=== PATIENT | male | born 1950 | race Caucasian/White ===

== ENCOUNTER 2019-11-20 15:00 | Inpatient (IN) ==
[2019-11-20 15:56] LABS: INR 1.1; Mean Corpuscular HGB Conc 30.1 g/dL (31.6-35.5); Prothrombin Time 12.9 Seconds (9.4-12.1); Red Blood Count 4.35 M/mcL (4.19-5.50); Red Cell Distribution Width 14.8 % (11.5-14.5)
[2019-11-20 15:58] LABS: Hematocrit 41.2 % (37.5-50.1); Hemoglobin 12.4 g/dL (12.9-16.9); Mean Corpuscular Hemoglobin 28.5 pg (28.0-33.3); Mean Corpuscular Volume 94.7 fL (83.0-100.0); Mean Platelet Volume 10.5 fL (9.4-12.4); Platelet Count 321 K/mcL (140-400)
[2019-11-20 16:10] LABS: BUN/Creatinine Ratio 21 (6-26); Blood Urea Nitrogen 21 mg/dL (8-23); Calcium 10.6 mg/dL (8.6-10.3); Carbon Dioxide 29 mEq/L (23-29); Chloride 102 mEq/L (98-107); Glucose 203 mg/dL (70-105); Osmolality,Calculated 295 (280-300); Potassium 4.8 mEq/L (3.5-5.1); Sodium 138 mEq/L (136-145); Troponin I < 0.03 ng/mL (< 0.04); eGFR For African Americans > 60 (> 60); eGFR For Non-African Americans > 60 (> 60)
[2019-11-20] MEDS ORDERED: Morphine Sulfate 2 MG/ML SYRINGE IVP ONE (16:21)
[2019-11-20 16:22] LABS: White Blood Count 155.7 K/mcL (4.3-11.1)
[2019-11-20 16:40] LABS: Hematocrit 38.3 % (37.5-50.1); Hemoglobin 11.8 g/dL (12.9-16.9); Mean Corpuscular HGB Conc 30.8 g/dL (31.6-35.5); Mean Corpuscular Hemoglobin 29.1 pg (28.0-33.3); Mean Corpuscular Volume 94.6 fL (83.0-100.0); Mean Platelet Volume 9.8 fL (9.4-12.4); Platelet Count 306 K/mcL (140-400); Red Blood Count 4.05 M/mcL (4.19-5.50); Red Cell Distribution Width 14.6 % (11.5-14.5)
[2019-11-20 16:41] LABS: Lymphocytes # 130.8 K/mcL (0.6-4.6); Monocytes # 3.1 K/mcL (0.0-1.3); Neutrophils # 21.8 K/mcL (1.6-8.9)
[2019-11-20 16:42] LABS: Platelet Estimate Normal (Normal); Reactive Lymphocytes Present (Not Present); Smudge Cells Present (Not Present)
[2019-11-20 16:46] LABS: White Blood Count 157.2 K/mcL (4.3-11.1)
[2019-11-20 17:11] LABS: Lymphocytes # 132.1 K/mcL (0.6-4.6); Monocytes # 4.7 K/mcL (0.0-1.3); Neutrophils # 18.9 K/mcL (1.6-8.9); Platelet Estimate Normal (Normal)
[2019-11-20 17:24] LABS: Adenovirus Not Detected (Not Detect); Coronavirus 229E Not Detected (Not Detect); Coronavirus HKU1 Not Detected (Not Detect); Coronavirus NL63 Not Detected (Not Detect); Coronavirus OC43 Not Detected (Not Detect)
[2019-11-20 17:25] LABS: Bordetella Pertussis Not Detected (Not Detect); Chlamydophila pneumoniae Not Detected (Not Detect); Human Metapneumovirus Not Detected (Not Detect); Human Rhinovirus/Enterovirus Not Detected (Not Detect); Influenza A Subtype 2009 H1 Not Detected (Not Detect); Influenza B Not Detected (Not Detect); Mycoplasma pneumoniae Not Detected (Not Detect); Parainfluenza Virus 1 Not Detected (Not Detect); Parainfluenza Virus 2 Not Detected (Not Detect); Parainfluenza Virus 3 Not Detected (Not Detect); Parainfluenza Virus 4 Not Detected (Not Detect); Respiratory Syncytial Virus Not Detected (Not Detect); SARS-CoV-2 Not Detected (Not Detect)
[2019-11-20 17:28] LABS: Reactive Lymphocytes Present (Not Present); Smudge Cells Present (Not Present)
[2019-11-20] MEDS ORDERED: Dextrose Gel 15 GM/37.5 ML TUBE PO PRN ×2 (18:12)
[2019-11-20] MEDS ORDERED: *HR* Dextrose 50 % in Water (Vial) 50 ML VIAL IVP PRN (18:12)
[2019-11-20] MEDS ORDERED: Ondansetron ODT 4 MG TAB.RAPDIS SL PRN (18:12)
[2019-11-20] MEDS ORDERED: D5% in Water 1,000 ML IVC PRN (18:12)
[2019-11-20] MEDS ORDERED: Naloxone 0.4 MG/ML INJ IVP PRN (18:12)
[2019-11-20] MEDS ORDERED: 0.9 % Sodium Chloride 1,000 ML IVC SCH (18:15)
[2019-11-20] MEDS ORDERED: Acetaminophen 325 MG TABLET PO PRN (18:20)
[2019-11-20 19:04] LABS: Phosphorous 2.8 mg/dL (2.7-4.5); Uric Acid 7.9 mg/dL (2.3-7.6)
[2019-11-20 20:53] LABS: Estimated Average Glucose 143 mg/dl
[2019-11-20] MEDS ORDERED: Melatonin 3 MG TABLET PO SCH (21:00)
[2019-11-20] MEDS ORDERED: Insulin DETEMIR 100 UNIT/ML X5UNITS SQ SCH (21:00)
[2019-11-20] MEDS: BuPROPion SR (12 HR) 150 MG TABLET PO SCH (21:14)
[2019-11-20 23:19] LABS: Bilirubin,Urine Negative (Negative); Blood,Urine Negative (Negative); Clarity,Urine Clear (Clear); Color,Urine Yellow (Yellow); Glucose,Urine (UA) Normal (Normal); Ketones,Urine 20 mg/dL (Negative); Leukocyte Esterase,Urine Negative (Negative); Nitrite,Urine Negative (Negative); Protein,Urine Trace mg/dL (Neg-Trace); Specific Gravity,Urine 1.029 (1.010-1.025); Urobilinogen,Urine Normal (Normal)
[2019-11-21] MEDS: Insulin LISPRO 300 UNITS/3 ML VIAL SQ SCH ×4 (01:07→17:31)
[2019-11-21 04:33] LABS: Basophils % 0.1 %; Immature Granulocytes % 0.4 % (0-4); Mean Platelet Volume 10.1 fL (9.4-12.4); Red Cell Distribution Width 14.6 % (11.5-14.5)
[2019-11-21 04:35] LABS: Basophils # 0.2 K/mcL (0.0-0.2); Hemoglobin 11.6 g/dL (12.9-16.9); Lymphocytes % 90.6 %; Mean Corpuscular HGB Conc 30.5 g/dL (31.6-35.5); Mean Corpuscular Volume 91.8 fL (83.0-100.0); Monocytes % 2.5 %; Platelet Count 324 K/mcL (140-400); Red Blood Count 4.14 M/mcL (4.19-5.50); Segmented Neutrophils % 6.4 %
[2019-11-21 04:39] LABS: Lymphocytes # 164.3 K/mcL (0.6-4.6); Monocytes # 4.5 K/mcL (0.0-1.3); Neutrophils # 11.6 K/mcL (1.6-8.9)
[2019-11-21 04:41] LABS: INR 1.2; Prothrombin Time 13.4 Seconds (9.4-12.1); White Blood Count 181.3 K/mcL (4.3-11.1)
[2019-11-21 04:44] LABS: Activated Partial Thrombo Time 33.4 Seconds (26.0-36.0)
[2019-11-21 04:53] LABS: Alanine Aminotransferase 12 Units/L (7-52); Albumin/Globulin Ratio 1.7 (1.1-2.2); Alkaline Phosphatase 95 Units/L (34-104); Aspartate Amino Transferase 20 Units/L (13-39); BUN/Creatinine Ratio 20 (6-26); Bilirubin,Total 0.5 mg/dL (0.3-1.0); Blood Urea Nitrogen 18 mg/dL (8-23); Calcium 9.8 mg/dL (8.6-10.3); Carbon Dioxide 28 mEq/L (23-29); Chloride 104 mEq/L (98-107); Globulin 2.3 g/dL (2.4-3.5); Glucose 161 mg/dL (70-105); Lactate Dehydrogenase 235 Units/L (140-271); Magnesium 1.1 mg/dL (1.6-2.6); Osmolality,Calculated 291 (280-300); Phosphorous 2.5 mg/dL (2.7-4.5); Potassium 4.8 mEq/L (3.5-5.1); Sodium 138 mEq/L (136-145); Total Protein 6.3 g/dL (6.4-8.9); Uric Acid 7.2 mg/dL (2.3-7.6); eGFR For African Americans > 60 (> 60); eGFR For Non-African Americans > 60 (> 60)
[2019-11-21 05:10] LABS: Reactive Lymphocytes Present (Not Present)
[2019-11-21 05:11] LABS: Platelet Estimate Normal (Normal); Smudge Cells Present (Not Present)
[2019-11-21] MEDS ORDERED: atenoloL 50 MG TABLET PO SCH (05:30)
[2019-11-21] MEDS: BuPROPion SR (12 HR) 150 MG TABLET PO SCH ×2 (07:46→21:44)
[2019-11-21] MEDS ORDERED: Aspirin Enteric Coated 81 MG Tablet PO SCH (09:00)
[2019-11-21] MEDS ORDERED: Insulin DETEMIR 100 UNIT/ML X5UNITS SQ SCH (09:00)
[2019-11-21] MEDS ORDERED: lisinopriL 20 MG TABLET PO SCH (09:00)
[2019-11-21] MEDS ORDERED: Total Joint Mixture (50 ml) INTRAART ONE (14:00)
[2019-11-21] MEDS ORDERED: *HR* FentaNYL (PF) 100 MCG/2 ML VIAL ONE ×2 (17:31→18:37)
[2019-11-21] MEDS ORDERED: *HR* Midazolam HCl 2 MG/2 ML VIAL ONE (17:31)
[2019-11-21] MEDS ORDERED: *HR* Propofol 200 MG/20 ML VIAL IVP ONE ×2 (17:32→18:37)
[2019-11-21] MEDS ORDERED: Lidocaine -MPF 2% 2 ML VIAL ONE ×2 (17:33→18:37)
[2019-11-21] MEDS ORDERED: *HR* Rocuronium Bromide 50 MG/5 ML VIAL ONE (17:33)
[2019-11-21] MEDS ORDERED: Lidocaine HCL 4 ML Topical Solution (Laryng-O-Jet Kit Sterile Pak) TP ONE (17:33)
[2019-11-21] MEDS ORDERED: Ondansetron 4 MG/2 ML VIAL ONE ×2 (17:33→18:37)
[2019-11-21] MEDS ORDERED: Ondansetron 4 MG/2 ML VIAL IVP PRN ×2 (18:22→20:32)
[2019-11-21] MEDS ORDERED: *HR* Labetalol 20 MG/4 ML SYRINGE IVP PRN (18:22)
[2019-11-21] MEDS ORDERED: *HR* Promethazine 25 MG/ML VIAL IVP PRN ×2 (18:22→20:32)
[2019-11-21] MEDS ORDERED: *HR* HYDROmorphone (PF) 1 MG/ML SYRINGE IVP PRN (18:22)
[2019-11-21] MEDS ORDERED: Vancomycin 1,000 MG VIAL ONE (18:31)
[2019-11-21] MEDS ORDERED: Ethanol\\Acetic Acid\\Na Ace\\Ben 1,000 ML IRRIG.SOLN IR ONE (18:31)
[2019-11-21] MEDS ORDERED: Dexamethasone 4 MG/ML VIAL ONE (18:37)
[2019-11-21] MEDS ORDERED: Acetaminophen IV 1,000 MG/100 ML INFUS..BTL ONE (18:54)
[2019-11-21] MEDS ORDERED: ceFAZolin 2,000 MG in Water for inj. (sterile) 20 ML IVP ONE (18:57)
[2019-11-21] MEDS ORDERED: EPHEDrine 50 MG/ML VIAL ONE (19:17)
[2019-11-21] MEDS ORDERED: *HR* HYDROMORPHONE 2 MG/ML VIAL ONE (19:23)
[2019-11-21] MEDS ORDERED: *HR* Dextrose 50 % in Water (Vial) 50 ML VIAL IVP PRN (20:32)
[2019-11-21] MEDS ORDERED: Naloxone 0.4 MG/ML INJ IVP PRN (20:32)
[2019-11-21] MEDS ORDERED: D5% in Water 1,000 ML IVC PRN (20:32)
[2019-11-21] MEDS ORDERED: *HR* OxyCODONE Immed Rel 5 MG TABLET PO PRN (20:32)
[2019-11-21] MEDS ORDERED: Acetaminophen 325 MG TABLET PO PRN (20:32)
[2019-11-21] MEDS ORDERED: Dextrose Gel 15 GM/37.5 ML TUBE PO PRN ×2 (20:32)
[2019-11-21] MEDS ORDERED: MOM Conc 10 ML UD.LIQ PO PRN (20:32)
[2019-11-21] MEDS ORDERED: Sennosides 8.6 MG TABLET PO PRN (21:00)
[2019-11-21] MEDS: Insulin DETEMIR 100 UNIT/ML X5UNITS SQ SCH (21:34)
[2019-11-21] MEDS: Ringers Solution, Lactated 1,000 ML IVC SCH (21:43)
[2019-11-21] MEDS: Melatonin 3 MG TABLET PO SCH (21:44)
[2019-11-21 22:17] LABS: Hematocrit 34.3 % (37.5-50.1); Hemoglobin 10.5 g/dL (12.9-16.9)
[2019-11-22] MEDS: CeFAZolin 2 GM/120 ML BAG IVPB SCH ×2 (00:04→09:38)
[2019-11-22] MEDS: Insulin LISPRO 300 UNITS/3 ML VIAL SQ SCH ×4 (00:04→17:11)
[2019-11-22] MEDS: Ringers Solution, Lactated 1,000 ML IVC SCH ×2 (05:23→09:10)
[2019-11-22 08:39] LABS: Red Cell Distribution Width 15.2 % (11.5-14.5)
[2019-11-22 08:40] LABS: Hematocrit 30.8 % (37.5-50.1); Hemoglobin 8.9 g/dL (12.9-16.9); Mean Corpuscular HGB Conc 28.9 g/dL (31.6-35.5); Mean Corpuscular Volume 96.9 fL (83.0-100.0); Mean Platelet Volume 10.7 fL (9.4-12.4); Platelet Count 288 K/mcL (140-400); Red Blood Count 3.18 M/mcL (4.19-5.50)
[2019-11-22 08:54] LABS: Calcium 9.7 mg/dL (8.6-10.3); Magnesium 1.8 mg/dL (1.6-2.6); Phosphorous 6.2 mg/dL (2.7-4.5); Potassium 5.6 mEq/L (3.5-5.1)
[2019-11-22 08:56] LABS: White Blood Count 202.3 K/mcL (4.3-11.1)
[2019-11-22] MEDS ORDERED: lisinopriL 20 MG TABLET PO SCH (09:00)
[2019-11-22] MEDS: BuPROPion SR (12 HR) 150 MG TABLET PO SCH ×2 (09:10→22:43)
[2019-11-22] MEDS: Multivit/Ca/Min/Fe/FA 1 TAB TABLET PO SCH (09:11)
[2019-11-22] MEDS: Ascorbic Acid 500 MG TABLET PO SCH ×2 (09:11→17:04)
[2019-11-22] MEDS: atenoloL 50 MG TABLET PO SCH (09:15)
[2019-11-22] MEDS: Insulin DETEMIR 100 UNIT/ML X5UNITS SQ SCH ×2 (09:24→22:46)
[2019-11-22 10:05] LABS: Monocytes # 4.1 K/mcL (0.0-1.3); Neutrophils # 20.2 K/mcL (1.6-8.9); Platelet Estimate Normal (Normal)
[2019-11-22 10:06] LABS: Anisocytosis 1+ (Not Present); Smudge Cells Present (Not Present)
[2019-11-22] MEDS ORDERED: Insulin Human Regular 5 UNIT in 0.9 % Sodium Chloride 10 ML IV ONE (11:35)
[2019-11-22] MEDS ORDERED: Calcium Gluconate 1gm/50mL 1 GM/50 ML BAG IVPB ONE (11:35)
[2019-11-22] MEDS ORDERED: *HR* Dextrose 50 % in Water (Vial) 50 ML VIAL IVP ONE (11:35)
[2019-11-22 12:17] LABS: Hematocrit 27.6 % (37.5-50.1); Hemoglobin 8.3 g/dL (12.9-16.9)
[2019-11-22] MEDS: 0.9 % Sodium Chloride 1,000 ML IVC SCH ×2 (12:27→22:44)
[2019-11-22 13:53] LABS: Calcium 9.5 mg/dL (8.6-10.3); Potassium 4.7 mEq/L (3.5-5.1)
[2019-11-22] MEDS ORDERED: 0.9 % Sodium Chloride 250 ML ONE (16:32)
[2019-11-22] MEDS: Aspirin Enteric Coated 81 MG Tablet PO SCH (17:21)
[2019-11-22 21:25] LABS: Hematocrit 28.1 % (37.5-50.1); Hemoglobin 8.6 g/dL (12.9-16.9); Immature Granulocytes % 0.4 % (0-4); Lymphocytes % 88.7 %; Mean Corpuscular HGB Conc 30.6 g/dL (31.6-35.5); Mean Corpuscular Hemoglobin 28.8 pg (28.0-33.3); Mean Platelet Volume 10.6 fL (9.4-12.4); Monocytes # 4.1 K/mcL (0.0-1.3); Monocytes % 2.9 %; Neutrophils # 11.4 K/mcL (1.6-8.9); Platelet Count 218 K/mcL (140-400); Red Blood Count 2.99 M/mcL (4.19-5.50); Red Cell Distribution Width 14.9 % (11.5-14.5)
[2019-11-22 22:03] LABS: Platelet Estimate Normal (Normal)
[2019-11-22 22:04] LABS: Reactive Lymphocytes Present (Not Present); Smudge Cells Present (Not Present)
[2019-11-22] MEDS: Melatonin 3 MG TABLET PO SCH (22:43)
[2019-11-23 07:05] LABS: Mean Platelet Volume 10.5 fL (9.4-12.4)
[2019-11-23 07:06] LABS: Hematocrit 28.5 % (37.5-50.1); Hemoglobin 8.7 g/dL (12.9-16.9); Immature Granulocytes % 0.4 % (0-4); Lymphocytes # 127.3 K/mcL (0.6-4.6); Mean Corpuscular HGB Conc 30.5 g/dL (31.6-35.5); Mean Corpuscular Hemoglobin 28.6 pg (28.0-33.3); Mean Corpuscular Volume 93.8 fL (83.0-100.0); Monocytes # 3.9 K/mcL (0.0-1.3); Monocytes % 2.7 %; Neutrophils # 12.9 K/mcL (1.6-8.9); Platelet Count 225 K/mcL (140-400); Red Blood Count 3.04 M/mcL (4.19-5.50); Red Cell Distribution Width 15.4 % (11.5-14.5); Segmented Neutrophils % 8.9 %
[2019-11-23 07:11] LABS: White Blood Count 144.7 K/mcL (4.3-11.1)
[2019-11-23 07:25] LABS: BUN/Creatinine Ratio 26 (6-26); Blood Urea Nitrogen 36 mg/dL (8-23); Calcium 9.7 mg/dL (8.6-10.3); Carbon Dioxide 26 mEq/L (23-29); Chloride 106 mEq/L (98-107); Glucose 59 mg/dL (70-105); Magnesium 1.8 mg/dL (1.6-2.6); Osmolality,Calculated 294 (280-300); Phosphorous 3.4 mg/dL (2.7-4.5); Potassium 4.1 mEq/L (3.5-5.1); Sodium 139 mEq/L (136-145); eGFR For African Americans > 60 (> 60); eGFR For Non-African Americans 50 (> 60)
[2019-11-23] MEDS: Insulin LISPRO 300 UNITS/3 ML VIAL SQ SCH ×3 (08:00→16:37)
[2019-11-23 08:04] LABS: Anisocytosis 1+ (Not Present); Platelet Estimate Normal (Normal)
[2019-11-23 08:05] LABS: Smudge Cells Present (Not Present)
[2019-11-23] MEDS: Aspirin Enteric Coated 81 MG Tablet PO SCH (10:28)
[2019-11-23] MEDS: Multivit/Ca/Min/Fe/FA 1 TAB TABLET PO SCH (10:29)
[2019-11-23] MEDS: 0.9 % Sodium Chloride 1,000 ML IVC SCH (10:29)
[2019-11-23] MEDS: Ascorbic Acid 500 MG TABLET PO SCH ×2 (10:29→17:24)
[2019-11-23] MEDS: BuPROPion SR (12 HR) 150 MG TABLET PO SCH ×2 (10:29→21:47)
[2019-11-23] MEDS: Insulin DETEMIR 100 UNIT/ML X5UNITS SQ SCH ×2 (10:30→21:48)
[2019-11-23] MEDS: Melatonin 3 MG TABLET PO SCH (21:47)
[2019-11-24 03:40] LABS: Immature Granulocytes % 0.3 % (0-4); Segmented Neutrophils % 8.3 %
[2019-11-24 03:42] LABS: Hemoglobin 7.3 g/dL (12.9-16.9); Lymphocytes % 88.7 %; Mean Corpuscular HGB Conc 30.4 g/dL (31.6-35.5); Mean Corpuscular Hemoglobin 28.6 pg (28.0-33.3); Mean Corpuscular Volume 94.1 fL (83.0-100.0); Mean Platelet Volume 10.5 fL (9.4-12.4); Monocytes # 2.8 K/mcL (0.0-1.3); Monocytes % 2.7 %; Platelet Count 205 K/mcL (140-400); Red Blood Count 2.55 M/mcL (4.19-5.50); Red Cell Distribution Width 15.2 % (11.5-14.5)
[2019-11-24 03:44] LABS: Lymphocytes # 93.2 K/mcL (0.6-4.6); Neutrophils # 8.7 K/mcL (1.6-8.9)
[2019-11-24 03:48] LABS: White Blood Count 105.1 K/mcL (4.3-11.1)
[2019-11-24 04:01] LABS: BUN/Creatinine Ratio 29 (6-26); Blood Urea Nitrogen 28 mg/dL (8-23); Calcium 8.6 mg/dL (8.6-10.3); Carbon Dioxide 25 mEq/L (23-29); Chloride 106 mEq/L (98-107); Glucose 231 mg/dL (70-105); Magnesium 1.6 mg/dL (1.6-2.6); Osmolality,Calculated 297 (280-300); Potassium 4.1 mEq/L (3.5-5.1); Sodium 137 mEq/L (136-145); eGFR For African Americans > 60 (> 60); eGFR For Non-African Americans > 60 (> 60)
[2019-11-24 04:50] LABS: Platelet Estimate Normal (Normal)
[2019-11-24 04:51] LABS: Smudge Cells Present (Not Present)
[2019-11-24] MEDS: Multivit/Ca/Min/Fe/FA 1 TAB TABLET PO SCH (09:42)
[2019-11-24] MEDS: BuPROPion SR (12 HR) 150 MG TABLET PO SCH ×2 (09:42→20:35)
[2019-11-24] MEDS: Ascorbic Acid 500 MG TABLET PO SCH ×2 (09:42→15:25)
[2019-11-24] MEDS: Aspirin Enteric Coated 81 MG Tablet PO SCH (09:43)
[2019-11-24] MEDS: Insulin LISPRO 300 UNITS/3 ML VIAL SQ SCH ×3 (09:45→20:44)
[2019-11-24] MEDS: Insulin DETEMIR 100 UNIT/ML X5UNITS SQ SCH ×2 (09:50→20:35)
[2019-11-24] MEDS: HYDROcodone BIT/Homatropine 5 MG TABLET PO PRN ×2 (11:26→20:35)
[2019-11-24] MEDS ORDERED: 0.9 % Sodium Chloride 250 ML ONE (14:00)
[2019-11-24 17:34] LABS: Eosinophils % 0.1 %; Immature Granulocytes % 0.3 % (0-4); Mean Platelet Volume 10.3 fL (9.4-12.4); Monocytes % 2.2 %; Red Cell Distribution Width 15.6 % (11.5-14.5)
[2019-11-24 17:36] LABS: Basophils # 0.1 K/mcL (0.0-0.2); Basophils % 0.1 %; Eosinophils # 0.1 K/mcL (0.0-0.6); Hematocrit 28.9 % (37.5-50.1); Hemoglobin 8.7 g/dL (12.9-16.9); Lymphocytes % 90.5 %; Mean Corpuscular HGB Conc 30.1 g/dL (31.6-35.5); Mean Corpuscular Hemoglobin 28.4 pg (28.0-33.3); Mean Corpuscular Volume 94.4 fL (83.0-100.0); Platelet Count 220 K/mcL (140-400); Red Blood Count 3.06 M/mcL (4.19-5.50); Segmented Neutrophils % 6.8 %
[2019-11-24 17:39] LABS: Lymphocytes # 103.8 K/mcL (0.6-4.6); Monocytes # 2.5 K/mcL (0.0-1.3); Neutrophils # 7.8 K/mcL (1.6-8.9); White Blood Count 114.7 K/mcL (4.3-11.1)
[2019-11-24 18:37] LABS: Platelet Estimate Normal (Normal); Smudge Cells Present (Not Present)
[2019-11-24] MEDS: Melatonin 3 MG TABLET PO SCH (20:35)
[2019-11-24 22:34] LABS: Hematocrit 26.9 % (37.5-50.1); Hemoglobin 8.2 g/dL (12.9-16.9)
[2019-11-25] MEDS: Insulin LISPRO 300 UNITS/3 ML VIAL SQ SCH ×2 (09:25→13:26)
[2019-11-25] MEDS: BuPROPion SR (12 HR) 150 MG TABLET PO SCH (09:26)
[2019-11-25] MEDS: atenoloL 50 MG TABLET PO SCH (09:26)
[2019-11-25] MEDS: Ascorbic Acid 500 MG TABLET PO SCH (09:26)
[2019-11-25] MEDS: Aspirin Enteric Coated 81 MG Tablet PO SCH (09:26)
[2019-11-25] MEDS: Multivit/Ca/Min/Fe/FA 1 TAB TABLET PO SCH (09:26)
[2019-11-25] MEDS: Insulin DETEMIR 100 UNIT/ML X5UNITS SQ SCH (09:27)
[2019-11-25 12:13] LABS: Hematocrit 28.3 % (37.5-50.1); Hemoglobin 8.6 g/dL (12.9-16.9); Mean Corpuscular HGB Conc 30.4 g/dL (31.6-35.5); Mean Corpuscular Hemoglobin 28.7 pg (28.0-33.3); Mean Corpuscular Volume 94.3 fL (83.0-100.0); Mean Platelet Volume 10.2 fL (9.4-12.4); Platelet Count 234 K/mcL (140-400); Red Cell Distribution Width 15.9 % (11.5-14.5)
[2019-11-25 12:19] LABS: White Blood Count 113.4 K/mcL (4.3-11.1)
[2019-11-25 12:31] LABS: BUN/Creatinine Ratio 18 (6-26); Blood Urea Nitrogen 16 mg/dL (8-23); Calcium 8.5 mg/dL (8.6-10.3); Carbon Dioxide 28 mEq/L (23-29); Chloride 103 mEq/L (98-107); Glucose 136 mg/dL (70-105); Magnesium 1.5 mg/dL (1.6-2.6); Osmolality,Calculated 287 (280-300); Phosphorous 2.6 mg/dL (2.7-4.5); Potassium 4.2 mEq/L (3.5-5.1); Sodium 137 mEq/L (136-145); eGFR For African Americans > 60 (> 60); eGFR For Non-African Americans > 60 (> 60)
[2019-11-25 12:44] LABS: Lymphocytes # 99.8 K/mcL (0.6-4.6); Neutrophils # 13.6 K/mcL (1.6-8.9); Platelet Estimate Slight Decrease (Normal); Smudge Cells Present (Not Present)
[2019-11-25 16:23] VITALS: BP 166/71
== END 2019-11-25 17:51 | DRG 469 ==
LOC: EMEROOARM 15:00 → 3NENU 15:00 → SUATTDRO 18:20 → 3NENU 22:13
PROVIDERS: ADMIT Internal Medicine; ATTEND Internal Medicine

== ENCOUNTER 2019-12-17 14:26 | Inpatient (IN) ==
[2019-12-17 15:21] LABS: Hematocrit 27.9 % (37.5-50.1); Hemoglobin 8.1 g/dL (12.9-16.9); Mean Corpuscular Hemoglobin 26.7 pg (28.0-33.3); Mean Corpuscular Volume 92.1 fL (83.0-100.0); Mean Platelet Volume 9.7 fL (9.4-12.4); Platelet Count 401 K/mcL (140-400); Red Blood Count 3.03 M/mcL (4.19-5.50); Red Cell Distribution Width 15.4 % (11.5-14.5)
[2019-12-17 15:26] LABS: INR 1.1; Prothrombin Time 12.5 Seconds (9.4-12.1)
[2019-12-17 15:29] LABS: Activated Partial Thrombo Time 30.9 Seconds (26.0-36.0)
[2019-12-17 15:43] LABS: White Blood Count 97.6 K/mcL (4.3-11.1)
[2019-12-17 15:50] LABS: BUN/Creatinine Ratio 41 (6-26); Blood Urea Nitrogen 40 mg/dL (8-23); Calcium 9.2 mg/dL (8.6-10.3); Carbon Dioxide 30 mEq/L (23-29); Chloride 97 mEq/L (98-107); Glucose 303 mg/dL (70-105); Osmolality,Calculated 295 (280-300); Potassium 4.9 mEq/L (3.5-5.1); Sodium 132 mEq/L (136-145); eGFR For African Americans > 60 (> 60); eGFR For Non-African Americans > 60 (> 60)
[2019-12-17 16:12] LABS: Lymphocytes # 84.9 K/mcL (0.6-4.6); Neutrophils # 8.8 K/mcL (1.6-8.9); Reactive Lymphocytes Present (Not Present)
[2019-12-17 16:13] LABS: Smudge Cells Present (Not Present)
[2019-12-17] MEDS ORDERED: Acetaminophen 325 MG TABLET PO PRN (18:15)
[2019-12-17] MEDS ORDERED: 0.9 % Sodium Chloride 1,000 ML IVC SCH (18:15)
[2019-12-17] MEDS ORDERED: Naloxone 0.4 MG/ML INJ IVP PRN (18:15)
[2019-12-17] MEDS ORDERED: D5% in Water 1,000 ML IVC PRN (18:26)
[2019-12-17] MEDS ORDERED: *HR* Dextrose 50 % in Water (Vial) 50 ML VIAL IVP PRN (18:26)
[2019-12-17] MEDS ORDERED: Dextrose Gel 15 GM/37.5 ML TUBE PO PRN ×2 (18:26)
[2019-12-17 20:29] LABS: Hematocrit 29.5 % (37.5-50.1); Hemoglobin 8.8 g/dL (12.9-16.9)
[2019-12-17] MEDS ORDERED: Insulin LISPRO 300 UNITS/3 ML VIAL SQ SCH (21:00)
[2019-12-18] MEDS ORDERED: Melatonin 3 MG TABLET PO SCH ×2 (00:45→21:00)
[2019-12-18] MEDS: Insulin LISPRO 300 UNITS/3 ML VIAL SQ SCH ×3 (08:57→17:08)
[2019-12-18 10:10] LABS: Hemoglobin 9.4 g/dL (12.9-16.9); Red Cell Distribution Width 15.1 % (11.5-14.5)
[2019-12-18 10:11] LABS: Hematocrit 31.8 % (37.5-50.1); Mean Corpuscular HGB Conc 29.6 g/dL (31.6-35.5); Mean Corpuscular Hemoglobin 27.9 pg (28.0-33.3); Mean Corpuscular Volume 94.4 fL (83.0-100.0); Mean Platelet Volume 9.8 fL (9.4-12.4); Platelet Count 459 K/mcL (140-400); Red Blood Count 3.37 M/mcL (4.19-5.50)
[2019-12-18 10:16] LABS: INR 1.2; Prothrombin Time 13.4 Seconds (9.4-12.1)
[2019-12-18 10:19] LABS: Activated Partial Thrombo Time 31.8 Seconds (26.0-36.0)
[2019-12-18 10:29] LABS: BUN/Creatinine Ratio 34 (6-26); Blood Urea Nitrogen 28 mg/dL (8-23); Calcium 9.8 mg/dL (8.6-10.3); Carbon Dioxide 27 mEq/L (23-29); Chloride 94 mEq/L (98-107); Glucose 287 mg/dL (70-105); Osmolality,Calculated 286 (280-300); Potassium 4.9 mEq/L (3.5-5.1); Sodium 130 mEq/L (136-145); eGFR For African Americans > 60 (> 60); eGFR For Non-African Americans > 60 (> 60)
[2019-12-18 10:33] LABS: White Blood Count 110.4 K/mcL (4.3-11.1)
[2019-12-18 11:38] LABS: Lymphocytes # 94.9 K/mcL (0.6-4.6); Monocytes # 2.2 K/mcL (0.0-1.3); Neutrophils # 13.3 K/mcL (1.6-8.9)
[2019-12-18 11:39] LABS: Platelet Estimate Normal (Normal); Reactive Lymphocytes Present (Not Present); Smudge Cells Present (Not Present)
[2019-12-18] MEDS: Ipratropium/Albuterol Neb 3 ML IH SCH ×2 (16:30→22:55)
[2019-12-18] MEDS: Insulin DETEMIR 100 UNIT/ML X5UNITS SQ SCH (21:51)
[2019-12-19] MEDS ORDERED: Ondansetron 4 MG/2 ML VIAL IVP PRN ×2 (02:00→17:09)
[2019-12-19 02:05] LABS: Hemoglobin 8.1 g/dL (12.9-16.9)
[2019-12-19 02:06] LABS: Hematocrit 27.6 % (37.5-50.1); Mean Corpuscular HGB Conc 29.3 g/dL (31.6-35.5); Mean Platelet Volume 9.4 fL (9.4-12.4); Platelet Count 432 K/mcL (140-400); Red Cell Distribution Width 15.3 % (11.5-14.5)
[2019-12-19 02:16] LABS: White Blood Count 99.6 K/mcL (4.3-11.1)
[2019-12-19 02:26] LABS: BUN/Creatinine Ratio 34 (6-26); Blood Urea Nitrogen 30 mg/dL (8-23); Calcium 9.8 mg/dL (8.6-10.3); Carbon Dioxide 27 mEq/L (23-29); Chloride 97 mEq/L (98-107); Glucose 256 mg/dL (70-105); Osmolality,Calculated 289 (280-300); Potassium 4.2 mEq/L (3.5-5.1); Sodium 132 mEq/L (136-145); eGFR For African Americans > 60 (> 60); eGFR For Non-African Americans > 60 (> 60)
[2019-12-19] MEDS: Ipratropium/Albuterol Neb 3 ML IH SCH (04:08)
[2019-12-19] MEDS ORDERED: atenoloL 50 MG TABLET PO SCH (09:00)
[2019-12-19] MEDS ORDERED: Lactulose Oral Soln 20 GM/30 ML UDC PO SCH (09:00)
[2019-12-19] MEDS ORDERED: Famotidine 20 MG TABLET PO SCH (09:00)
[2019-12-19] MEDS ORDERED: lisinopriL 20 MG TABLET PO SCH (09:00)
[2019-12-19] MEDS ORDERED: Insulin DETEMIR 100 UNIT/ML X5UNITS SQ SCH ×2 (10:15→21:00)
[2019-12-19] MEDS: Insulin LISPRO 300 UNITS/3 ML VIAL SQ SCH ×2 (10:19→13:19)
[2019-12-19] MEDS ORDERED: Ipratropium/Albuterol Neb 3 ML IH PRN ×2 (10:23→19:38)
[2019-12-19] MEDS: Insulin DETEMIR 100 UNIT/ML X5UNITS SQ SCH (10:28)
[2019-12-19 14:12] LABS: Hematocrit 30.8 % (37.5-50.1); Hemoglobin 9.1 g/dL (12.9-16.9)
[2019-12-19] MEDS ORDERED: CeFAZolin Syr 2,000MG/20 ML 2,000 MG/20 ML SYRINGE IVPB ONE (14:39)
[2019-12-19] MEDS ORDERED: *HR* Succinylcholine 200 MG/10 ML VIAL IVP ONE (15:55)
[2019-12-19] MEDS ORDERED: Lidocaine -MPF 2% 2 ML VIAL ONE (15:55)
[2019-12-19] MEDS ORDERED: *HR* FentaNYL (PF) 100 MCG/2 ML VIAL ONE (15:55)
[2019-12-19] MEDS ORDERED: *HR* Propofol 200 MG/20 ML VIAL IVP ONE (15:55)
[2019-12-19] MEDS ORDERED: Ondansetron 4 MG/2 ML VIAL ONE (15:55)
[2019-12-19 16:26] LABS: Adenovirus Not Detected (Not Detect); Bordetella Pertussis Not Detected (Not Detect); Chlamydophila pneumoniae Not Detected (Not Detect); Coronavirus 229E Not Detected (Not Detect); Coronavirus HKU1 Not Detected (Not Detect); Coronavirus NL63 Not Detected (Not Detect); Coronavirus OC43 Not Detected (Not Detect); Human Metapneumovirus Not Detected (Not Detect); Human Rhinovirus/Enterovirus Not Detected (Not Detect); Influenza A Subtype 2009 H1 Not Detected (Not Detect); Influenza B Not Detected (Not Detect); Mycoplasma pneumoniae Not Detected (Not Detect); Parainfluenza Virus 1 Not Detected (Not Detect); Parainfluenza Virus 2 Not Detected (Not Detect); Parainfluenza Virus 3 Not Detected (Not Detect); Parainfluenza Virus 4 Not Detected (Not Detect); Respiratory Syncytial Virus Not Detected (Not Detect); SARS-CoV-2 Not Detected (Not Detect)
[2019-12-19] MEDS ORDERED: Vancomycin 1,000 MG VIAL ONE (16:40)
[2019-12-19] MEDS ORDERED: Ethanol\\Acetic Acid\\Na Ace\\Ben 1,000 ML IRRIG.SOLN IR ONE (16:41)
[2019-12-19] MEDS ORDERED: *HR* FentaNYL (PF) 100 MCG/2 ML VIAL IVP PRN (17:09)
[2019-12-19] MEDS ORDERED: Dexamethasone 4 MG/ML VIAL ONE (17:27)
[2019-12-19] MEDS ORDERED: *HR* Dextrose 50 % in Water (Vial) 50 ML VIAL IVP PRN (19:38)
[2019-12-19] MEDS ORDERED: Dextrose Gel 15 GM/37.5 ML TUBE PO PRN ×2 (19:38)
[2019-12-19] MEDS ORDERED: Ringers Solution, Lactated 1,000 ML IVC SCH (19:38)
[2019-12-19] MEDS ORDERED: *HR* Promethazine 25 MG/ML VIAL IVP PRN (19:38)
[2019-12-19] MEDS ORDERED: MOM Conc 10 ML UD.LIQ PO PRN (19:38)
[2019-12-19] MEDS ORDERED: Sennosides 8.6 MG TABLET PO PRN (19:38)
[2019-12-19] MEDS ORDERED: Naloxone 0.4 MG/ML INJ IVP PRN ×2 (19:38)
[2019-12-19] MEDS ORDERED: D5% in Water 1,000 ML IVC PRN (19:38)
[2019-12-19] MEDS: Melatonin 3 MG TABLET PO SCH (20:58)
[2019-12-19] MEDS: Ascorbic Acid 500 MG TABLET PO SCH (20:59)
[2019-12-20 03:13] LABS: Immature Granulocytes % 0.2 % (0-4); Mean Platelet Volume 9.6 fL (9.4-12.4); Monocytes % 0.6 %; Red Cell Distribution Width 15.5 % (11.5-14.5)
[2019-12-20 03:15] LABS: Hematocrit 28.5 % (37.5-50.1); Hemoglobin 8.1 g/dL (12.9-16.9); Lymphocytes % 91.5 %; Mean Corpuscular HGB Conc 28.4 g/dL (31.6-35.5); Mean Corpuscular Hemoglobin 26.9 pg (28.0-33.3); Mean Corpuscular Volume 94.7 fL (83.0-100.0); Platelet Count 455 K/mcL (140-400); Red Blood Count 3.01 M/mcL (4.19-5.50); Segmented Neutrophils % 7.7 %
[2019-12-20 03:16] LABS: Monocytes # 0.6 K/mcL (0.0-1.3); Neutrophils # 8.2 K/mcL (1.6-8.9)
[2019-12-20 03:26] LABS: BUN/Creatinine Ratio 37 (6-26); Blood Urea Nitrogen 29 mg/dL (8-23); Calcium 9.9 mg/dL (8.6-10.3); Carbon Dioxide 26 mEq/L (23-29); Chloride 99 mEq/L (98-107); Glucose 257 mg/dL (70-105); Osmolality,Calculated 293 (280-300); Potassium 4.9 mEq/L (3.5-5.1); Sodium 134 mEq/L (136-145); eGFR For African Americans > 60 (> 60); eGFR For Non-African Americans > 60 (> 60)
[2019-12-20 03:33] LABS: Hypochromasia Present (Not Present)
[2019-12-20 03:34] LABS: Reactive Lymphocytes Present (Not Present); Smudge Cells Present (Not Present)
[2019-12-20 03:35] LABS: Platelet Estimate Normal (Normal)
[2019-12-20] MEDS: Acetaminophen 325 MG TABLET PO PRN (10:19)
[2019-12-20] MEDS: Multivit/Ca/Min/Fe/FA 1 TAB TABLET PO SCH (10:19)
[2019-12-20] MEDS: Lactulose Oral Soln 20 GM/30 ML UDC PO SCH (10:19)
[2019-12-20] MEDS: Famotidine 20 MG TABLET PO SCH (10:19)
[2019-12-20] MEDS: Ascorbic Acid 500 MG TABLET PO SCH ×2 (10:20→16:53)
[2019-12-20] MEDS: lisinopriL 20 MG TABLET PO SCH (10:20)
[2019-12-20] MEDS: atenoloL 50 MG TABLET PO SCH (10:20)
[2019-12-20] MEDS: Insulin LISPRO 300 UNITS/3 ML VIAL SQ SCH ×3 (10:21→16:53)
[2019-12-20] MEDS: Melatonin 3 MG TABLET PO SCH (21:07)
[2019-12-20] MEDS: Insulin DETEMIR 100 UNIT/ML X5UNITS SQ SCH (21:08)
[2019-12-21 05:34] LABS: Red Cell Distribution Width 15.7 % (11.5-14.5)
[2019-12-21 05:35] LABS: BUN/Creatinine Ratio 42 (6-26); Blood Urea Nitrogen 31 mg/dL (8-23); Calcium 9.3 mg/dL (8.6-10.3); Carbon Dioxide 30 mEq/L (23-29); Chloride 101 mEq/L (98-107); Glucose 111 mg/dL (70-105); Hematocrit 28.1 % (37.5-50.1); Mean Corpuscular HGB Conc 28.5 g/dL (31.6-35.5); Mean Corpuscular Volume 94.9 fL (83.0-100.0); Mean Platelet Volume 9.6 fL (9.4-12.4); Osmolality,Calculated 291 (280-300); Platelet Count 534 K/mcL (140-400); Potassium 3.8 mEq/L (3.5-5.1); Red Blood Count 2.96 M/mcL (4.19-5.50); Sodium 137 mEq/L (136-145); eGFR For African Americans > 60 (> 60); eGFR For Non-African Americans > 60 (> 60)
[2019-12-21 05:51] LABS: White Blood Count 110.2 K/mcL (4.3-11.1)
[2019-12-21] MEDS: Insulin LISPRO 300 UNITS/3 ML VIAL SQ SCH ×3 (07:49→17:05)
[2019-12-21] MEDS: Insulin DETEMIR 100 UNIT/ML X5UNITS SQ SCH ×2 (07:49→21:39)
[2019-12-21] MEDS: Lactulose Oral Soln 20 GM/30 ML UDC PO SCH (08:00)
[2019-12-21] MEDS: Famotidine 20 MG TABLET PO SCH (08:07)
[2019-12-21] MEDS: atenoloL 50 MG TABLET PO SCH (08:07)
[2019-12-21] MEDS: Ascorbic Acid 500 MG TABLET PO SCH ×2 (08:07→17:04)
[2019-12-21] MEDS: Acetaminophen 325 MG TABLET PO PRN (08:07)
[2019-12-21] MEDS: lisinopriL 20 MG TABLET PO SCH (08:07)
[2019-12-21] MEDS: Multivit/Ca/Min/Fe/FA 1 TAB TABLET PO SCH (08:07)
[2019-12-21] MEDS: Melatonin 3 MG TABLET PO SCH (21:39)
[2019-12-22 06:33] LABS: Eosinophils % 0.1 %; Immature Granulocytes % 0.4 % (0-4); Nucleated Red Blood Cells 0.1 /100 WBC (0)
[2019-12-22 06:34] LABS: Eosinophils # 0.1 K/mcL (0.0-0.6); Hematocrit 29.4 % (37.5-50.1); Hemoglobin 8.4 g/dL (12.9-16.9); Lymphocytes % 89.7 %; Mean Corpuscular HGB Conc 28.6 g/dL (31.6-35.5); Mean Corpuscular Volume 94.5 fL (83.0-100.0); Mean Platelet Volume 9.5 fL (9.4-12.4); Monocytes % 1.8 %; Platelet Count 564 K/mcL (140-400); Red Blood Count 3.11 M/mcL (4.19-5.50); Red Cell Distribution Width 15.7 % (11.5-14.5)
[2019-12-22 06:39] LABS: Monocytes # 2.1 K/mcL (0.0-1.3); Neutrophils # 9.4 K/mcL (1.6-8.9); White Blood Count 117.1 K/mcL (4.3-11.1)
[2019-12-22 06:42] LABS: BUN/Creatinine Ratio 37 (6-26); Blood Urea Nitrogen 23 mg/dL (8-23); Calcium 9.2 mg/dL (8.6-10.3); Carbon Dioxide 33 mEq/L (23-29); Chloride 101 mEq/L (98-107); Glucose 86 mg/dL (70-105); Osmolality,Calculated 287 (280-300); Potassium 3.8 mEq/L (3.5-5.1); Sodium 137 mEq/L (136-145); eGFR For African Americans > 60 (> 60); eGFR For Non-African Americans > 60 (> 60)
[2019-12-22 07:29] LABS: Hypochromasia Present (Not Present); Platelet Estimate Increased (Normal); Reactive Lymphocytes Present (Not Present)
[2019-12-22 07:32] LABS: Smudge Cells Present (Not Present)
[2019-12-22] MEDS: Multivit/Ca/Min/Fe/FA 1 TAB TABLET PO SCH (10:34)
[2019-12-22] MEDS: atenoloL 50 MG TABLET PO SCH (10:34)
[2019-12-22] MEDS: Ascorbic Acid 500 MG TABLET PO SCH ×2 (10:35→17:31)
[2019-12-22] MEDS: Lactulose Oral Soln 20 GM/30 ML UDC PO SCH (10:35)
[2019-12-22] MEDS: lisinopriL 20 MG TABLET PO SCH (10:35)
[2019-12-22] MEDS: Famotidine 20 MG TABLET PO SCH (10:35)
[2019-12-22] MEDS: Insulin LISPRO 300 UNITS/3 ML VIAL SQ SCH ×3 (10:41→17:31)
[2019-12-22] MEDS: Insulin DETEMIR 100 UNIT/ML X5UNITS SQ SCH ×2 (10:41→21:42)
[2019-12-22] MEDS: Melatonin 3 MG TABLET PO SCH (21:42)
[2019-12-23 00:35] LABS: Nucleated Red Blood Cells 0.1 /100 WBC (0); Segmented Neutrophils % 8.6 %
[2019-12-23 00:37] LABS: Hemoglobin 8.2 g/dL (12.9-16.9); Immature Granulocytes % 0.5 % (0-4); Lymphocytes # 108.5 K/mcL (0.6-4.6); Lymphocytes % 89.1 %; Mean Corpuscular HGB Conc 28.3 g/dL (31.6-35.5); Mean Corpuscular Hemoglobin 26.4 pg (28.0-33.3); Mean Corpuscular Volume 93.2 fL (83.0-100.0); Mean Platelet Volume 9.3 fL (9.4-12.4); Monocytes % 1.8 %; Platelet Count 622 K/mcL (140-400); Red Blood Count 3.11 M/mcL (4.19-5.50); Red Cell Distribution Width 15.6 % (11.5-14.5)
[2019-12-23 00:41] LABS: Monocytes # 2.2 K/mcL (0.0-1.3); Neutrophils # 10.5 K/mcL (1.6-8.9); White Blood Count 121.8 K/mcL (4.3-11.1)
[2019-12-23 00:56] LABS: BUN/Creatinine Ratio 32 (6-26); Blood Urea Nitrogen 19 mg/dL (8-23); Calcium 8.6 mg/dL (8.6-10.3); Carbon Dioxide 28 mEq/L (23-29); Chloride 100 mEq/L (98-107); Glucose 286 mg/dL (70-105); Osmolality,Calculated 291 (280-300); Potassium 4.3 mEq/L (3.5-5.1); Sodium 134 mEq/L (136-145); eGFR For African Americans > 60 (> 60); eGFR For Non-African Americans > 60 (> 60)
[2019-12-23 01:11] LABS: Smudge Cells Present (Not Present)
[2019-12-23 01:13] LABS: Hypochromasia Present (Not Present); Platelet Estimate Marked Increase (Normal); Reactive Lymphocytes Present (Not Present)
[2019-12-23] MEDS: Lactulose Oral Soln 20 GM/30 ML UDC PO SCH (08:18)
[2019-12-23] MEDS: Famotidine 20 MG TABLET PO SCH (08:19)
[2019-12-23] MEDS: lisinopriL 20 MG TABLET PO SCH (08:19)
[2019-12-23] MEDS: Ascorbic Acid 500 MG TABLET PO SCH ×2 (08:19→15:45)
[2019-12-23] MEDS: atenoloL 50 MG TABLET PO SCH (08:19)
[2019-12-23] MEDS: Multivit/Ca/Min/Fe/FA 1 TAB TABLET PO SCH (08:19)
[2019-12-23] MEDS: Insulin DETEMIR 100 UNIT/ML X5UNITS SQ SCH ×2 (08:23→21:42)
[2019-12-23] MEDS: Insulin LISPRO 300 UNITS/3 ML VIAL SQ SCH ×3 (08:24→17:24)
[2019-12-23] MEDS ORDERED: Lidocaine -MPF 1% 5 ML AMPUL INFILT ONE (10:51)
[2019-12-23] MEDS: Melatonin 3 MG TABLET PO SCH (21:42)
[2019-12-24 01:03] LABS: Basophils % 0.1 %; Eosinophils % 0.2 %; Immature Granulocytes % 0.6 % (0-4); Nucleated Red Blood Cells 0.1 /100 WBC (0); Red Cell Distribution Width 15.9 % (11.5-14.5)
[2019-12-24 01:04] LABS: Basophils # 0.1 K/mcL (0.0-0.2); Eosinophils # 0.3 K/mcL (0.0-0.6); Hematocrit 28.1 % (37.5-50.1); Lymphocytes # 125.7 K/mcL (0.6-4.6); Lymphocytes % 88.3 %; Mean Corpuscular HGB Conc 28.5 g/dL (31.6-35.5); Mean Corpuscular Hemoglobin 27.1 pg (28.0-33.3); Mean Corpuscular Volume 95.3 fL (83.0-100.0); Monocytes # 2.6 K/mcL (0.0-1.3); Monocytes % 1.8 %; Platelet Count 712 K/mcL (140-400); Red Blood Count 2.95 M/mcL (4.19-5.50)
[2019-12-24 01:05] LABS: Neutrophils # 12.8 K/mcL (1.6-8.9)
[2019-12-24 01:09] LABS: White Blood Count 142.4 K/mcL (4.3-11.1)
[2019-12-24 01:22] LABS: Alanine Aminotransferase 7 Units/L (7-52); Albumin 2.5 g/dL (3.5-5.7); Albumin/Globulin Ratio 0.9 (1.1-2.2); Alkaline Phosphatase 101 Units/L (34-104); Aspartate Amino Transferase 12 Units/L (13-39); BUN/Creatinine Ratio 31 (6-26); Bilirubin,Direct 0.1 mg/dL (0.0-0.2); Bilirubin,Indirect 0.4 mg/dL (0.0-1.0); Bilirubin,Total 0.5 mg/dL (0.3-1.0); Blood Urea Nitrogen 16 mg/dL (8-23); C-Reactive Protein 56 mg/L (Less than 10); Calcium 8.6 mg/dL (8.6-10.3); Carbon Dioxide 29 mEq/L (23-29); Chloride 104 mEq/L (98-107); Globulin 2.9 g/dL (2.4-3.5); Glucose 44 mg/dL (70-105); Osmolality,Calculated 282 (280-300); Potassium 4.1 mEq/L (3.5-5.1); Sodium 137 mEq/L (136-145); Total Protein 5.4 g/dL (6.4-8.9); eGFR For African Americans > 60 (> 60); eGFR For Non-African Americans > 60 (> 60)
[2019-12-24 01:54] LABS: Hypochromasia Present (Not Present); Platelet Estimate Marked Increase (Normal); Smudge Cells Present (Not Present)
[2019-12-24 01:55] LABS: Reactive Lymphocytes Present (Not Present)
[2019-12-24 04:22] VITALS: BP 122/60
[2019-12-24] MEDS: Insulin DETEMIR 100 UNIT/ML X5UNITS SQ SCH (08:14)
[2019-12-24] MEDS: Insulin LISPRO 300 UNITS/3 ML VIAL SQ SCH ×2 (08:14→12:12)
[2019-12-24] MEDS: Lactulose Oral Soln 20 GM/30 ML UDC PO SCH (08:28)
[2019-12-24] MEDS: Famotidine 20 MG TABLET PO SCH (08:30)
[2019-12-24] MEDS: Multivit/Ca/Min/Fe/FA 1 TAB TABLET PO SCH (08:31)
[2019-12-24] MEDS: Ascorbic Acid 500 MG TABLET PO SCH (08:31)
[2019-12-24] MEDS: atenoloL 50 MG TABLET PO SCH (08:32)
[2019-12-24] MEDS: lisinopriL 20 MG TABLET PO SCH (08:32)
== END 2019-12-24 15:52 | DRG 501 ==
LOC: 3NENU 14:26 → EMEROOARM 14:26 → 3NENU 18:48
PROVIDERS: ADMIT Pharmacist; ATTEND Pharmacist
PROC: IRFLUID (2019-12-18 14:00)

== ENCOUNTER 2019-12-31 10:00 | Inpatient (IN) ==
[2019-12-31 12:15] LABS: Hemoglobin 6.5 g/dL (12.9-16.9)
[2019-12-31 12:28] LABS: Hematocrit 23.4 % (37.5-50.1); Mean Corpuscular HGB Conc 27.8 g/dL (31.6-35.5); Mean Corpuscular Hemoglobin 26.6 pg (28.0-33.3); Mean Corpuscular Volume 95.9 fL (83.0-100.0); Mean Platelet Volume 9.1 fL (9.4-12.4); Platelet Count 717 K/mcL (140-400); Red Blood Count 2.44 M/mcL (4.19-5.50)
[2019-12-31 12:29] LABS: INR 1.3
[2019-12-31 12:32] LABS: Activated Partial Thrombo Time 28.9 Seconds (26.0-36.0)
[2019-12-31 12:33] LABS: BUN/Creatinine Ratio 20 (6-26); Blood Urea Nitrogen 19 mg/dL (8-23); Calcium 8.9 mg/dL (8.6-10.3); Carbon Dioxide 28 mEq/L (23-29); Chloride 104 mEq/L (98-107); Glucose 168 mg/dL (70-105); Osmolality,Calculated 290 (280-300); Potassium 4.2 mEq/L (3.5-5.1); Sodium 137 mEq/L (136-145); Troponin I < 0.03 ng/mL (< 0.04); eGFR For African Americans > 60 (> 60); eGFR For Non-African Americans > 60 (> 60)
[2019-12-31 12:44] LABS: White Blood Count 124.5 K/mcL (4.3-11.1)
[2019-12-31] MEDS ORDERED: 0.9 % Sodium Chloride 250 ML ONE ×2 (13:59→22:23)
[2019-12-31] MEDS ORDERED: Isovue-370 500 ML BOTTLE IVP ONE (14:28)
[2019-12-31] MEDS ORDERED: Naloxone 0.4 MG/ML INJ IVP PRN (14:52)
[2019-12-31 14:57] LABS: Lymphocytes # 102.1 K/mcL (0.6-4.6); Neutrophils # 22.4 K/mcL (1.6-8.9)
[2019-12-31 14:59] LABS: Poikilocytosis 1+ (Not Present)
[2019-12-31 15:01] LABS: Smudge Cells Present (Not Present)
[2019-12-31 15:03] LABS: Anisocytosis 1+ (Not Present); Platelet Estimate Marked Increase (Normal)
[2019-12-31] MEDS ORDERED: D5% in Water 1,000 ML IVC PRN (15:15)
[2019-12-31] MEDS ORDERED: *HR* Dextrose 50 % in Water (Vial) 50 ML VIAL IVP PRN (15:15)
[2019-12-31] MEDS ORDERED: Dextrose Gel 15 GM/37.5 ML TUBE PO PRN ×2 (15:15)
[2019-12-31] MEDS ORDERED: VANCOMYCIN 1000 MG IVPB SCH (21:00)
[2019-12-31] MEDS: Insulin LISPRO 300 UNITS/3 ML VIAL SQ SCH (22:21)
[2019-12-31] MEDS: traZODone 50 MG TABLET PO PRN (22:48)
[2019-12-31] MEDS: Ipratropium/Albuterol Neb 3 ML IH SCH (23:08)
[2020-01-01] MEDS: Insulin LISPRO 300 UNITS/3 ML VIAL SQ SCH ×5 (00:41→21:00)
[2020-01-01] MEDS: Ipratropium/Albuterol Neb 3 ML IH SCH ×4 (03:38→22:05)
[2020-01-01 05:02] LABS: Basophils % 0.5 %; Eosinophils % 0.1 %; Immature Granulocytes % 0.3 % (0-4); Monocytes % 2.3 %; Red Cell Distribution Width 15.2 % (11.5-14.5)
[2020-01-01 05:03] LABS: Basophils # 0.5 K/mcL (0.0-0.2); Eosinophils # 0.1 K/mcL (0.0-0.6); Hematocrit 26.7 % (37.5-50.1); Hemoglobin 8.2 g/dL (12.9-16.9); Lymphocytes # 79.4 K/mcL (0.6-4.6); Mean Corpuscular HGB Conc 30.7 g/dL (31.6-35.5); Mean Corpuscular Hemoglobin 28.7 pg (28.0-33.3); Mean Corpuscular Volume 93.4 fL (83.0-100.0); Mean Platelet Volume 9.2 fL (9.4-12.4); Monocytes # 2.1 K/mcL (0.0-1.3); Platelet Count 488 K/mcL (140-400); Red Blood Count 2.86 M/mcL (4.19-5.50); Segmented Neutrophils % 9.8 %
[2020-01-01 05:04] LABS: INR 1.3; Prothrombin Time 14.8 Seconds (9.4-12.1)
[2020-01-01 05:14] LABS: White Blood Count 91.3 K/mcL (4.3-11.1)
[2020-01-01 05:20] LABS: BUN/Creatinine Ratio 23 (6-26); Blood Urea Nitrogen 23 mg/dL (8-23); Calcium 8.4 mg/dL (8.6-10.3); Carbon Dioxide 22 mEq/L (23-29); Chloride 105 mEq/L (98-107); Glucose 148 mg/dL (70-105); Osmolality,Calculated 292 (280-300); Potassium 4.1 mEq/L (3.5-5.1); Sodium 138 mEq/L (136-145); eGFR For African Americans > 60 (> 60); eGFR For Non-African Americans > 60 (> 60)
[2020-01-01 05:25] LABS: Smudge Cells Present (Not Present)
[2020-01-01] MEDS: *HR* OxyCODONE/APAP 5/325 TABLET PO PRN (10:06)
[2020-01-01] MEDS ORDERED: MOM Conc 10 ML UD.LIQ PO PRN (16:54)
[2020-01-01] MEDS ORDERED: Dextrose Gel 15 GM/37.5 ML TUBE PO PRN ×2 (17:37)
[2020-01-01] MEDS ORDERED: *HR* Dextrose 50 % in Water (Vial) 50 ML VIAL IVP PRN (17:37)
[2020-01-01] MEDS ORDERED: D5% in Water 1,000 ML IVC PRN (17:37)
[2020-01-01 18:27] LABS: Hematocrit 29.6 % (37.5-50.1); Hemoglobin 8.8 g/dL (12.9-16.9)
[2020-01-01] MEDS: traZODone 50 MG TABLET PO PRN (20:50)
[2020-01-01 21:44] LABS: Hematocrit 29.2 % (37.5-50.1); Hemoglobin 8.6 g/dL (12.9-16.9)
[2020-01-01] MEDS: lisinopriL 20 MG TABLET PO SCH (21:48)
[2020-01-02] MEDS: Ipratropium/Albuterol Neb 3 ML IH SCH ×4 (03:37→23:46)
[2020-01-02 04:45] LABS: Hemoglobin 8.1 g/dL (12.9-16.9)
[2020-01-02 04:47] LABS: Hematocrit 26.5 % (37.5-50.1); Mean Corpuscular HGB Conc 30.6 g/dL (31.6-35.5); Mean Corpuscular Hemoglobin 28.8 pg (28.0-33.3); Mean Corpuscular Volume 94.3 fL (83.0-100.0); Mean Platelet Volume 8.9 fL (9.4-12.4); Platelet Count 456 K/mcL (140-400); Red Blood Count 2.81 M/mcL (4.19-5.50); Red Cell Distribution Width 15.7 % (11.5-14.5)
[2020-01-02] MEDS: atenoloL 50 MG TABLET PO SCH (09:35)
[2020-01-02] MEDS: Famotidine 20 MG TABLET PO SCH (09:35)
[2020-01-02] MEDS: Insulin LISPRO 300 UNITS/3 ML VIAL SQ SCH ×3 (09:38→17:32)
[2020-01-02 17:12] LABS: Hematocrit 26.8 % (37.5-50.1); Hemoglobin 8.1 g/dL (12.9-16.9)
[2020-01-02] MEDS: traZODone 50 MG TABLET PO PRN (20:07)
[2020-01-02 22:41] LABS: Appearance,Synovial Fluid Cloudy (Clear-Hazy); Color,Synovial Fluid Red (Straw)
[2020-01-02 22:55] LABS: Lymphocytes,Synovial Fluid 0 %
[2020-01-03 00:21] LABS: Basophils % 0.5 %; Eosinophils % 0.3 %; Mean Platelet Volume 9.1 fL (9.4-12.4)
[2020-01-03] MEDS: lisinopriL 20 MG TABLET PO SCH ×2 (00:21→20:45)
[2020-01-03] MEDS: Insulin LISPRO 300 UNITS/3 ML VIAL SQ SCH ×4 (00:24→17:42)
[2020-01-03 00:27] LABS: Basophils # 0.4 K/mcL (0.0-0.2); Hematocrit 26.1 % (37.5-50.1); Hemoglobin 8.1 g/dL (12.9-16.9); Immature Granulocytes % 0.3 % (0-4); Lymphocytes % 85.8 %; Mean Corpuscular Volume 93.5 fL (83.0-100.0); Monocytes # 2.3 K/mcL (0.0-1.3); Monocytes % 2.9 %; Neutrophils # 8.1 K/mcL (1.6-8.9); Platelet Count 407 K/mcL (140-400); Red Blood Count 2.79 M/mcL (4.19-5.50); Red Cell Distribution Width 15.7 % (11.5-14.5); Segmented Neutrophils % 10.2 %
[2020-01-03 00:33] LABS: Eosinophils # 0.2 K/mcL (0.0-0.6); Lymphocytes # 68.4 K/mcL (0.6-4.6)
[2020-01-03 00:36] LABS: White Blood Count 79.7 K/mcL (4.3-11.1)
[2020-01-03 01:44] LABS: Smudge Cells Present (Not Present)
[2020-01-03 01:45] LABS: Anisocytosis 1+ (Not Present)
[2020-01-03 04:12] LABS: Red Cell Distribution Width 15.9 % (11.5-14.5)
[2020-01-03 04:14] LABS: Hematocrit 26.4 % (37.5-50.1); Hemoglobin 7.8 g/dL (12.9-16.9); Immature Reticulocyte % 23.8 % (11.0-38.0); Mean Corpuscular HGB Conc 29.5 g/dL (31.6-35.5); Mean Corpuscular Hemoglobin 27.9 pg (28.0-33.3); Mean Corpuscular Volume 94.3 fL (83.0-100.0); Platelet Count 392 K/mcL (140-400); Retculocyte # 0.11 M/mcL (0.05-0.10); Reticulocyte % 3.8 % (1.6-2.8)
[2020-01-03 04:24] LABS: % Iron Saturation 13 % (20-55); Iron 20 mcg/dL (65-175); Lactate Dehydrogenase 135 Units/L (140-271); Transferrin 114 mg/dL (203-362)
[2020-01-03 04:25] LABS: BUN/Creatinine Ratio 19 (6-26); Blood Urea Nitrogen 15 mg/dL (8-23); eGFR For African Americans > 60 (> 60); eGFR For Non-African Americans > 60 (> 60)
[2020-01-03] MEDS: Ipratropium/Albuterol Neb 3 ML IH SCH ×4 (04:30→23:12)
[2020-01-03 05:50] LABS: Eosinophils # 2.9 K/mcL (0.0-0.6); Lymphocytes # 56.2 K/mcL (0.6-4.6); Monocytes # 2.9 K/mcL (0.0-1.3); Neutrophils # 10.1 K/mcL (1.6-8.9)
[2020-01-03 05:51] LABS: Platelet Estimate Normal (Normal); Smudge Cells Present (Not Present)
[2020-01-03] MEDS: atenoloL 50 MG TABLET PO SCH (09:08)
[2020-01-03] MEDS: Famotidine 20 MG TABLET PO SCH (09:08)
[2020-01-03] MEDS: *HR* OxyCODONE/APAP 5/325 TABLET PO PRN (15:48)
[2020-01-03 23:07] LABS: Hematocrit 27.5 % (37.5-50.1); Hemoglobin 8.3 g/dL (12.9-16.9)
[2020-01-04] MEDS: Insulin LISPRO 300 UNITS/3 ML VIAL SQ SCH ×4 (01:47→17:55)
[2020-01-04 03:55] LABS: BUN/Creatinine Ratio 17 (6-26); Blood Urea Nitrogen 11 mg/dL (8-23); Calcium 9.1 mg/dL (8.6-10.3); Carbon Dioxide 26 mEq/L (23-29); Chloride 103 mEq/L (98-107); Glucose 221 mg/dL (70-105); Osmolality,Calculated 284 (280-300); Potassium 3.9 mEq/L (3.5-5.1); Sodium 134 mEq/L (136-145); eGFR For African Americans > 60 (> 60); eGFR For Non-African Americans > 60 (> 60)
[2020-01-04] MEDS: Ipratropium/Albuterol Neb 3 ML IH SCH ×4 (04:21→23:31)
[2020-01-04 06:02] LABS: Hematocrit 26.6 % (37.5-50.1); Mean Corpuscular HGB Conc 30.1 g/dL (31.6-35.5); Mean Corpuscular Hemoglobin 28.6 pg (28.0-33.3); Mean Platelet Volume 9.4 fL (9.4-12.4); Platelet Count 345 K/mcL (140-400)
[2020-01-04 06:06] LABS: White Blood Count 63.4 K/mcL (4.3-11.1)
[2020-01-04] MEDS: atenoloL 50 MG TABLET PO SCH (10:11)
[2020-01-04] MEDS: *HR* OxyCODONE/APAP 5/325 TABLET PO PRN ×2 (10:11→16:54)
[2020-01-04] MEDS: Famotidine 20 MG TABLET PO SCH (10:11)
[2020-01-04] MEDS: rifAMPin 150 MG CAPSULE PO SCH ×2 (10:26→16:54)
[2020-01-04 13:37] LABS: Hematocrit 27.9 % (37.5-50.1); Hemoglobin 8.5 g/dL (12.9-16.9)
[2020-01-04] MEDS: traZODone 50 MG TABLET PO PRN (20:07)
[2020-01-04] MEDS: lisinopriL 20 MG TABLET PO SCH (20:09)
[2020-01-04] MEDS ORDERED: 0.9 % Sodium Chloride 1,000 ML IVC ONE (22:32)
[2020-01-05] MEDS: 0.9 % Sodium Chloride 1,000 ML IVC SCH ×3 (00:48→20:35)
[2020-01-05] MEDS: Ipratropium/Albuterol Neb 3 ML IH SCH ×4 (04:13→22:54)
[2020-01-05 04:14] LABS: Hemoglobin 7.8 g/dL (12.9-16.9); Mean Platelet Volume 9.4 fL (9.4-12.4)
[2020-01-05 04:15] LABS: Mean Corpuscular Hemoglobin 27.9 pg (28.0-33.3); Mean Corpuscular Volume 92.9 fL (83.0-100.0); Platelet Count 297 K/mcL (140-400); Red Cell Distribution Width 16.2 % (11.5-14.5)
[2020-01-05 04:19] LABS: White Blood Count 56.9 K/mcL (4.3-11.1)
[2020-01-05 04:31] LABS: BUN/Creatinine Ratio 18 (6-26); Blood Urea Nitrogen 15 mg/dL (8-23); Calcium 8.8 mg/dL (8.6-10.3); Carbon Dioxide 25 mEq/L (23-29); Chloride 105 mEq/L (98-107); Glucose 347 mg/dL (70-105); Osmolality,Calculated 293 (280-300); Potassium 4.2 mEq/L (3.5-5.1); Sodium 134 mEq/L (136-145); eGFR For African Americans > 60 (> 60); eGFR For Non-African Americans > 60 (> 60)
[2020-01-05] MEDS: Famotidine 20 MG TABLET PO SCH (08:02)
[2020-01-05] MEDS: *HR* OxyCODONE/APAP 5/325 TABLET PO PRN (08:02)
[2020-01-05] MEDS: rifAMPin 150 MG CAPSULE PO SCH ×3 (08:02→17:43)
[2020-01-05] MEDS: atenoloL 50 MG TABLET PO SCH (08:03)
[2020-01-05] MEDS: Insulin LISPRO 300 UNITS/3 ML VIAL SQ SCH ×4 (08:03→20:33)
[2020-01-05] MEDS: Insulin DETEMIR 100 UNIT/ML X5UNITS SQ SCH ×2 (10:35→20:32)
[2020-01-05] MEDS: *HR* OxyCODONE/APAP 10/325 TABLET PO PRN (17:46)
[2020-01-05] MEDS: lisinopriL 20 MG TABLET PO SCH (20:31)
[2020-01-05] MEDS: traZODone 50 MG TABLET PO PRN (20:31)
[2020-01-06 02:33] LABS: Protein/Creatinine Ratio,Urine 0.57 mg/mg (0.00-0.20)
[2020-01-06 03:29] LABS: Hematocrit 26.1 % (37.5-50.1); Mean Corpuscular HGB Conc 30.7 g/dL (31.6-35.5); Mean Corpuscular Hemoglobin 28.9 pg (28.0-33.3); Mean Corpuscular Volume 94.2 fL (83.0-100.0); Mean Platelet Volume 9.6 fL (9.4-12.4); Platelet Count 261 K/mcL (140-400); Red Blood Count 2.77 M/mcL (4.19-5.50); Red Cell Distribution Width 16.3 % (11.5-14.5)
[2020-01-06 03:35] LABS: White Blood Count 57.1 K/mcL (4.3-11.1)
[2020-01-06 03:39] LABS: BUN/Creatinine Ratio 13 (6-26); Blood Urea Nitrogen 11 mg/dL (8-23); Calcium 8.6 mg/dL (8.6-10.3); Carbon Dioxide 28 mEq/L (23-29); Chloride 110 mEq/L (98-107); Glucose 54 mg/dL (70-105); Osmolality,Calculated 285 (280-300); Potassium 3.5 mEq/L (3.5-5.1); Sodium 139 mEq/L (136-145); eGFR For African Americans > 60 (> 60); eGFR For Non-African Americans > 60 (> 60)
[2020-01-06] MEDS: Ipratropium/Albuterol Neb 3 ML IH SCH ×3 (04:09→16:03)
[2020-01-06] MEDS: 0.9 % Sodium Chloride 1,000 ML IVC SCH ×2 (06:51→18:35)
[2020-01-06] MEDS: Insulin LISPRO 300 UNITS/3 ML VIAL SQ SCH ×5 (07:42→20:35)
[2020-01-06 08:58] LABS: Alpha 2 Globulin (PEP) 0.65 g/dL (0.48-1.05); Beta Globulin (PEP) 0.53 g/dL (0.48-1.10)
[2020-01-06 10:05] LABS: IFE Reflexed NOT DONE
[2020-01-06] MEDS: Famotidine 20 MG TABLET PO SCH (10:05)
[2020-01-06] MEDS: atenoloL 50 MG TABLET PO SCH (10:05)
[2020-01-06] MEDS: rifAMPin 150 MG CAPSULE PO SCH ×3 (10:05→16:43)
[2020-01-06] MEDS: Insulin DETEMIR 100 UNIT/ML X5UNITS SQ SCH ×2 (10:07→20:47)
[2020-01-06] MEDS ORDERED: Ipratropium/Albuterol Neb 3 ML IH PRN (16:15)
[2020-01-06] MEDS: *HR* OxyCODONE/APAP 10/325 TABLET PO PRN (16:42)
[2020-01-06] MEDS: lisinopriL 20 MG TABLET PO SCH (20:47)
[2020-01-07 06:16] LABS: Basophils % 0.4 %; Hemoglobin 8.1 g/dL (12.9-16.9); Monocytes % 2.1 %
[2020-01-07 06:17] LABS: Basophils # 0.2 K/mcL (0.0-0.2); Eosinophils # 0.4 K/mcL (0.0-0.6); Eosinophils % 0.7 %; Hematocrit 25.8 % (37.5-50.1); Immature Granulocytes % 0.2 % (0-4); Lymphocytes # 46.7 K/mcL (0.6-4.6); Lymphocytes % 87.1 %; Mean Corpuscular HGB Conc 31.4 g/dL (31.6-35.5); Mean Corpuscular Hemoglobin 29.5 pg (28.0-33.3); Mean Corpuscular Volume 93.8 fL (83.0-100.0); Mean Platelet Volume 9.7 fL (9.4-12.4); Neutrophils # 5.1 K/mcL (1.6-8.9); Platelet Count 263 K/mcL (140-400); Red Blood Count 2.75 M/mcL (4.19-5.50); Red Cell Distribution Width 16.7 % (11.5-14.5); Segmented Neutrophils % 9.5 %
[2020-01-07 06:24] LABS: Monocytes # 1.1 K/mcL (0.0-1.3); White Blood Count 53.6 K/mcL (4.3-11.1)
[2020-01-07] MEDS: Insulin LISPRO 300 UNITS/3 ML VIAL SQ SCH ×4 (07:41→21:00)
[2020-01-07] MEDS: 0.9 % Sodium Chloride 1,000 ML IVC SCH ×2 (07:43→12:34)
[2020-01-07] MEDS: rifAMPin 150 MG CAPSULE PO SCH ×3 (08:01→15:59)
[2020-01-07] MEDS: atenoloL 50 MG TABLET PO SCH (08:01)
[2020-01-07] MEDS: Famotidine 20 MG TABLET PO SCH (08:01)
[2020-01-07] MEDS: lisinopriL 20 MG TABLET PO SCH (20:59)
[2020-01-08] MEDS: 0.9 % Sodium Chloride 1,000 ML IVC SCH (00:19)
[2020-01-08 05:07] LABS: Hemoglobin 8.4 g/dL (12.9-16.9); Mean Platelet Volume 9.6 fL (9.4-12.4); Nucleated Red Blood Cells 0.1 /100 WBC (0)
[2020-01-08 05:08] LABS: Hematocrit 27.1 % (37.5-50.1); Mean Corpuscular Hemoglobin 29.1 pg (28.0-33.3); Mean Corpuscular Volume 93.8 fL (83.0-100.0); Platelet Count 259 K/mcL (140-400); Red Blood Count 2.89 M/mcL (4.19-5.50); Red Cell Distribution Width 16.7 % (11.5-14.5)
[2020-01-08 05:29] LABS: White Blood Count 49.7 K/mcL (4.3-11.1)
[2020-01-08 06:06] LABS: Anisocytosis 1+ (Not Present); Lymphocytes # 40.8 K/mcL (0.6-4.6); Platelet Estimate Normal (Normal); Smudge Cells Present (Not Present)
[2020-01-08] MEDS: Insulin LISPRO 300 UNITS/3 ML VIAL SQ SCH ×4 (08:41→23:40)
[2020-01-08] MEDS: rifAMPin 150 MG CAPSULE PO SCH ×3 (08:41→17:01)
[2020-01-08] MEDS: atenoloL 50 MG TABLET PO SCH (08:41)
[2020-01-08] MEDS: Famotidine 20 MG TABLET PO SCH (08:41)
[2020-01-08] MEDS ORDERED: Insulin DETEMIR 100 UNIT/ML X5UNITS SQ SCH (09:00)
[2020-01-08] MEDS: lisinopriL 20 MG TABLET PO SCH (20:08)
[2020-01-08] MEDS: *HR* OxyCODONE/APAP 5/325 TABLET PO PRN (23:45)
[2020-01-09 05:04] LABS: Immature Granulocytes % 0.2 % (0-4); Lymphocytes % 85.5 %; Mean Platelet Volume 9.7 fL (9.4-12.4)
[2020-01-09 05:06] LABS: Basophils # 0.2 K/mcL (0.0-0.2); Basophils % 0.5 %; Eosinophils # 0.5 K/mcL (0.0-0.6); Hematocrit 25.6 % (37.5-50.1); Hemoglobin 7.9 g/dL (12.9-16.9); Lymphocytes # 38.1 K/mcL (0.6-4.6); Mean Corpuscular HGB Conc 30.9 g/dL (31.6-35.5); Mean Corpuscular Hemoglobin 28.9 pg (28.0-33.3); Mean Corpuscular Volume 93.8 fL (83.0-100.0); Monocytes # 2.1 K/mcL (0.0-1.3); Monocytes % 4.6 %; Neutrophils # 3.7 K/mcL (1.6-8.9); Platelet Count 247 K/mcL (140-400); Red Blood Count 2.73 M/mcL (4.19-5.50); Segmented Neutrophils % 8.2 %
[2020-01-09 05:10] LABS: White Blood Count 44.6 K/mcL (4.3-11.1)
[2020-01-09 05:50] LABS: Platelet Estimate Normal (Normal); Smudge Cells Present (Not Present)
[2020-01-09] MEDS: Insulin LISPRO 300 UNITS/3 ML VIAL SQ SCH ×4 (08:30→20:51)
[2020-01-09] MEDS: Famotidine 20 MG TABLET PO SCH (08:31)
[2020-01-09] MEDS: atenoloL 50 MG TABLET PO SCH (08:31)
[2020-01-09] MEDS: rifAMPin 150 MG CAPSULE PO SCH ×3 (08:31→16:15)
[2020-01-09] MEDS: Insulin DETEMIR 100 UNIT/ML X5UNITS SQ SCH (08:31)
[2020-01-09] MEDS ORDERED: Insulin DETEMIR 100 UNIT/ML X5UNITS SQ SCH ×2 (09:00→21:00)
[2020-01-09 15:00] LABS: eGFR For African Americans > 60 (> 60); eGFR For Non-African Americans > 60 (> 60)
[2020-01-09] MEDS: lisinopriL 20 MG TABLET PO SCH (20:50)
[2020-01-10 05:02] LABS: Basophils % 0.4 %; Hemoglobin 8.2 g/dL (12.9-16.9); Immature Granulocytes % 0.2 % (0-4); Lymphocytes % 86.1 %; Segmented Neutrophils % 8.3 %
[2020-01-10 05:03] LABS: Basophils # 0.2 K/mcL (0.0-0.2); Eosinophils % 0.7 %; Hematocrit 26.2 % (37.5-50.1); Lymphocytes # 42.5 K/mcL (0.6-4.6); Mean Corpuscular HGB Conc 31.3 g/dL (31.6-35.5); Mean Corpuscular Hemoglobin 29.1 pg (28.0-33.3); Mean Corpuscular Volume 92.9 fL (83.0-100.0); Mean Platelet Volume 9.9 fL (9.4-12.4); Monocytes # 2.1 K/mcL (0.0-1.3); Monocytes % 4.3 %; Neutrophils # 4.1 K/mcL (1.6-8.9); Platelet Count 289 K/mcL (140-400); Red Blood Count 2.82 M/mcL (4.19-5.50)
[2020-01-10 05:05] LABS: Eosinophils # 0.4 K/mcL (0.0-0.6)
[2020-01-10 05:06] LABS: White Blood Count 49.3 K/mcL (4.3-11.1)
[2020-01-10 05:21] LABS: Platelet Estimate Normal (Normal); Smudge Cells Present (Not Present)
[2020-01-10] MEDS: Insulin LISPRO 300 UNITS/3 ML VIAL SQ SCH ×2 (08:23→11:36)
[2020-01-10] MEDS: rifAMPin 150 MG CAPSULE PO SCH ×3 (08:27→17:42)
[2020-01-10] MEDS: atenoloL 50 MG TABLET PO SCH (08:27)
[2020-01-10] MEDS: Famotidine 20 MG TABLET PO SCH (08:28)
[2020-01-10] MEDS: Insulin DETEMIR 100 UNIT/ML X5UNITS SQ SCH (08:28)
[2020-01-10 16:10] VITALS: BP 145/74
[2020-01-10] MEDS ORDERED: Insulin DETEMIR 100 UNIT/ML X5UNITS SQ SCH (21:00)
== END 2020-01-10 17:50 | DRG 560 ==
LOC: EMEROOARM 10:00 → 2NNU 10:00 → SUATTDRO 19:26 → 3NENU 01-01 15:44
PROVIDERS: ADMIT Internal Medicine; ATTEND Student in an Organized Health Care Education/Training Program
PROC: IRDRAIN (2020-01-02 12:00)

== ENCOUNTER 2020-01-19 17:30 | Inpatient (IN) ==
[2020-01-19] MEDS: 0.9 % Sodium Chloride 1,000 ML IVC ONE (18:10)
[2020-01-19] MEDS ORDERED: Isovue-370 500 ML BOTTLE IVP ONE ×2 (18:15→21:59)
[2020-01-19 18:29] LABS: Mean Platelet Volume 9.2 fL (9.4-12.4)
[2020-01-19 18:30] LABS: Hematocrit 26.9 % (37.5-50.1); Mean Corpuscular HGB Conc 29.7 g/dL (31.6-35.5); Mean Corpuscular Hemoglobin 28.7 pg (28.0-33.3); Mean Corpuscular Volume 96.4 fL (83.0-100.0); Platelet Count 453 K/mcL (140-400); Red Blood Count 2.79 M/mcL (4.19-5.50); Red Cell Distribution Width 17.1 % (11.5-14.5)
[2020-01-19 18:32] LABS: Bacteria,Urine Few per hpf (None-Few); Bilirubin,Urine Negative (Negative); Blood,Urine Large (Negative); Clarity,Urine Turbid (Clear); Color,Urine Orange (Yellow); Glucose,Urine (UA) >=1000 mg/dL (Normal); Hyaline Casts,Urine Few per lpf (None Seen); Ketones,Urine 150 mg/dL (Negative); Leukocyte Esterase,Urine Trace (Negative); Mucus,Urine Few per lpf (None-Few); Nitrite,Urine Negative (Negative); PH,Urine 5.5 pH Units (5.0-8.0); Protein,Urine 70 mg/dL (Neg-Trace); RBC,Urine TNTC per hpf (0-3); Specific Gravity,Urine 1.027 (1.010-1.025); Urobilinogen,Urine Normal (Normal); WBC,Urine 30-50 per hpf (0-3)
[2020-01-19 18:52] LABS: Alanine Aminotransferase 16 Units/L (7-52); Albumin 2.5 g/dL (3.5-5.7); Alkaline Phosphatase 221 Units/L (34-104); Aspartate Amino Transferase 13 Units/L (13-39); BUN/Creatinine Ratio 25 (6-26); Bilirubin,Total 1.1 mg/dL (0.3-1.0); Blood Urea Nitrogen 32 mg/dL (8-23); Calcium 7.3 mg/dL (8.6-10.3); Carbon Dioxide 16 mEq/L (23-29); Chloride 100 mEq/L (98-107); Globulin 2.4 g/dL (2.4-3.5); Glucose 501 mg/dL (70-105); Lipase 15 Units/L (11-82); Osmolality,Calculated 311 (280-300); Potassium 4.1 mEq/L (3.5-5.1); Sodium 136 mEq/L (136-145); Total Protein 4.9 g/dL (6.4-8.9); eGFR For African Americans > 60 (> 60); eGFR For Non-African Americans 56 (> 60)
[2020-01-19] MEDS ORDERED: cefTRIAXone 1,000 MG in Water for inj. (sterile) 10 ML IVP ONE ×2 (19:01→20:37)
[2020-01-19 19:08] LABS: White Blood Count 88.6 K/mcL (4.3-11.1)
[2020-01-19 19:18] LABS: Lymphocytes # 54.9 K/mcL (0.6-4.6); Monocytes # 1.8 K/mcL (0.0-1.3); Neutrophils # 31.9 K/mcL (1.6-8.9); Smudge Cells Present (Not Present)
[2020-01-19 19:19] LABS: Platelet Estimate Normal (Normal)
[2020-01-19 19:25] LABS: VBG HCO3 17 mEq/L (21-27); VBG PCO2 35 mmHg (41-51); VBG PO2 162 mmHg (25-50)
[2020-01-19] MEDS ORDERED: 0.9 % Sodium Chloride w KCl 20 MEQ/1,000 ML MLS IVC SCH (19:45)
[2020-01-19] MEDS ORDERED: Ondansetron 4 MG/2 ML VIAL IVP PRN (20:33)
[2020-01-19] MEDS ORDERED: Acetaminophen 325 MG TABLET PO PRN (20:33)
[2020-01-19] MEDS ORDERED: *HR* Dextrose 50 % in Water (Vial) 50 ML VIAL IVP PRN (20:39)
[2020-01-19] MEDS ORDERED: D5% in 0.45% NACL 1,000 ML IVC PRN (20:39)
[2020-01-19] MEDS ORDERED: Insulin Regular, Human 100 UNIT/ML IV PRN ×2 (20:39)
[2020-01-19] MEDS: Insulin Human Regular 100 UNIT in 0.9 % Sodium Chloride 100 ML IVC SCH (20:44)
[2020-01-19] MEDS ORDERED: Insulin Human Regular 100 UNIT in 0.9 % Sodium Chloride 100 ML IVC SCH (20:45)
[2020-01-19 20:53] LABS: INR 1.4; Prothrombin Time 15.6 Seconds (9.4-12.1)
[2020-01-19 21:03] LABS: BUN/Creatinine Ratio 26 (6-26); Blood Urea Nitrogen 32 mg/dL (8-23); Calcium 6.8 mg/dL (8.6-10.3); Carbon Dioxide 14 mEq/L (23-29); Chloride 104 mEq/L (98-107); Glucose 485 mg/dL (70-105); Magnesium 1.4 mg/dL (1.6-2.6); Osmolality,Calculated 314 (280-300); Phosphorous 3.4 mg/dL (2.7-4.5); Potassium 4.1 mEq/L (3.5-5.1); Sodium 138 mEq/L (136-145); eGFR For African Americans > 60 (> 60); eGFR For Non-African Americans 57 (> 60)
[2020-01-19] MEDS: MetroNIDAZOLE 500 MG/100 ML 500 MG/100 ML BAG IVPB SCH (22:28)
[2020-01-19] MEDS ORDERED: rifAMPin 150 MG CAPSULE PO SCH (22:30)
[2020-01-19] MEDS: 0.45 % Sodium Chloride w/KCl 20 MEQ/1,000 ML MLS IVC SCH (22:53)
[2020-01-20] MEDS: 0.45 % Sodium Chloride w/KCl 20 MEQ/1,000 ML MLS IVC SCH (00:56)
[2020-01-20] MEDS: D5% in 0.45% NACL w KCl 20 MEQ/1,000 ML MLS IVC PRN ×3 (01:26→09:47)
[2020-01-20] MEDS: Insulin Human Regular 100 UNIT in 0.9 % Sodium Chloride 100 ML IVC SCH ×2 (01:27→06:47)
[2020-01-20] MEDS: MetroNIDAZOLE 500 MG/100 ML 500 MG/100 ML BAG IVPB SCH ×3 (05:10→21:40)
[2020-01-20 08:32] LABS: VBG HCO3 24 mEq/L (21-27); VBG PCO2 57 mmHg (41-51); VBG PH 7.24 pH Units (7.32-7.42); VBG PO2 52 mmHg (25-50)
[2020-01-20 08:34] LABS: Hematocrit 24.3 % (37.5-50.1); Hemoglobin 7.1 g/dL (12.9-16.9); Mean Corpuscular HGB Conc 29.2 g/dL (31.6-35.5); Mean Corpuscular Hemoglobin 27.8 pg (28.0-33.3); Mean Corpuscular Volume 95.3 fL (83.0-100.0); Mean Platelet Volume 9.2 fL (9.4-12.4); Platelet Count 451 K/mcL (140-400); Red Blood Count 2.55 M/mcL (4.19-5.50); Red Cell Distribution Width 17.3 % (11.5-14.5)
[2020-01-20 08:39] LABS: White Blood Count 87.5 K/mcL (4.3-11.1)
[2020-01-20 08:46] LABS: Alanine Aminotransferase 12 Units/L (7-52); Albumin 2.2 g/dL (3.5-5.7); Alkaline Phosphatase 183 Units/L (34-104); Aspartate Amino Transferase 15 Units/L (13-39); BUN/Creatinine Ratio 31 (6-26); Bilirubin,Total 0.9 mg/dL (0.3-1.0); Blood Urea Nitrogen 30 mg/dL (8-23); Calcium 6.7 mg/dL (8.6-10.3); Carbon Dioxide 25 mEq/L (23-29); Chloride 111 mEq/L (98-107); Globulin 2.2 g/dL (2.4-3.5); Glucose 58 mg/dL (70-105); Osmolality,Calculated 296 (280-300); Potassium 3.6 mEq/L (3.5-5.1); Sodium 141 mEq/L (136-145); Total Protein 4.4 g/dL (6.4-8.9); Vancomycin,Random 16 mcg/mL; eGFR For African Americans > 60 (> 60); eGFR For Non-African Americans > 60 (> 60)
[2020-01-20] MEDS ORDERED: Insulin LISPRO 300 UNITS/3 ML VIAL SQ ONE (09:05)
[2020-01-20] MEDS ORDERED: *HR* Dextrose 50 % in Water (Vial) 50 ML VIAL IVP PRN (09:52)
[2020-01-20] MEDS ORDERED: Dextrose Gel 15 GM/37.5 ML TUBE PO PRN ×2 (09:52)
[2020-01-20] MEDS ORDERED: D5% in Water 1,000 ML IVC PRN (09:52)
[2020-01-20 10:31] LABS: Estimated Average Glucose 126 mg/dl
[2020-01-20 10:44] LABS: Magnesium 1.7 mg/dL (1.6-2.6)
[2020-01-20] MEDS: Insulin DETEMIR 100 UNIT/ML X5UNITS SQ SCH (11:28)
[2020-01-20] MEDS: Insulin LISPRO 300 UNITS/3 ML VIAL SQ SCH ×2 (11:45→17:52)
[2020-01-20] MEDS ORDERED: Vancomycin 1,250 MG/262.5 ML IV.SOLN IVPB SCH (21:00)
[2020-01-20] MEDS ORDERED: Insulin LISPRO 300 UNITS/3 ML VIAL SQ SCH (21:00)
[2020-01-20] MEDS: cefTRIAXone 2,000 MG in Water for inj. (sterile) 20 ML IVP SCH (21:40)
[2020-01-20] MEDS ORDERED: Haloperidol Lactate 5 MG/ML VIAL IM ONE (22:53)
[2020-01-21] MEDS ORDERED: Haloperidol Lactate 5 MG/ML VIAL IVP PRN (05:00)
[2020-01-21] MEDS: MetroNIDAZOLE 500 MG/100 ML 500 MG/100 ML BAG IVPB SCH ×3 (05:12→20:47)
[2020-01-21 06:42] LABS: Hemoglobin 6.4 g/dL (12.9-16.9)
[2020-01-21 06:44] LABS: Basophils % 0.2 %; Hematocrit 21.9 % (37.5-50.1); Immature Granulocytes % 0.7 % (0-4); Lymphocytes % 72.9 %; Mean Corpuscular HGB Conc 29.2 g/dL (31.6-35.5); Mean Corpuscular Hemoglobin 27.2 pg (28.0-33.3); Mean Corpuscular Volume 93.2 fL (83.0-100.0); Monocytes # 2.4 K/mcL (0.0-1.3); Monocytes % 3.5 %; Platelet Count 370 K/mcL (140-400); Red Blood Count 2.35 M/mcL (4.19-5.50); Red Cell Distribution Width 17.5 % (11.5-14.5); Segmented Neutrophils % 22.7 %
[2020-01-21 06:52] LABS: Basophils # 0.1 K/mcL (0.0-0.2); Neutrophils # 15.6 K/mcL (1.6-8.9)
[2020-01-21 06:55] LABS: White Blood Count 68.6 K/mcL (4.3-11.1)
[2020-01-21 07:06] LABS: Alanine Aminotransferase 11 Units/L (7-52); Albumin 2.1 g/dL (3.5-5.7); Albumin/Globulin Ratio 0.9 (1.1-2.2); Alkaline Phosphatase 183 Units/L (34-104); Aspartate Amino Transferase 19 Units/L (13-39); BUN/Creatinine Ratio 35 (6-26); Blood Urea Nitrogen 31 mg/dL (8-23); Calcium 6.9 mg/dL (8.6-10.3); Carbon Dioxide 22 mEq/L (23-29); Chloride 114 mEq/L (98-107); Globulin 2.3 g/dL (2.4-3.5); Glucose 67 mg/dL (70-105); Magnesium 1.5 mg/dL (1.6-2.6); Osmolality,Calculated 299 (280-300); Potassium 3.4 mEq/L (3.5-5.1); Sodium 142 mEq/L (136-145); Total Protein 4.4 g/dL (6.4-8.9); eGFR For African Americans > 60 (> 60); eGFR For Non-African Americans > 60 (> 60)
[2020-01-21 07:19] LABS: Anisocytosis 1+ (Not Present); Platelet Estimate Normal (Normal); Smudge Cells Present (Not Present)
[2020-01-21] MEDS ORDERED: Potassium Phosphate 44 MEQ in 0.9 % Sodium Chloride 250 ML IVPB ONE (08:41)
[2020-01-21] MEDS: Insulin LISPRO 300 UNITS/3 ML VIAL SQ SCH ×3 (09:13→17:48)
[2020-01-21] MEDS: Insulin DETEMIR 100 UNIT/ML X5UNITS SQ SCH (09:14)
[2020-01-21 09:21] LABS: Hematocrit 22.5 % (37.5-50.1); Hemoglobin 6.6 g/dL (12.9-16.9)
[2020-01-21] MEDS: Aspirin Enteric Coated 81 MG Tablet PO SCH (09:36)
[2020-01-21] MEDS: Pyridoxine (B-6) 50 MG TABLET PO SCH (09:37)
[2020-01-21] MEDS: Famotidine 20 MG TABLET PO SCH (09:37)
[2020-01-21] MEDS: Magnesium Oxide 400 MG TABLET PO SCH (09:37)
[2020-01-21] MEDS: Ascorbic Acid 500 MG TABLET PO SCH (09:37)
[2020-01-21] MEDS: atenoloL 50 MG TABLET PO SCH (09:38)
[2020-01-21] MEDS: Cholecalciferol (D-3) 1,000 UNIT (25MCG) TABLET PO SCH (10:13)
[2020-01-21] MEDS: *HR* HYDROcodone/Acet 5/325 mg TABLET PO PRN (10:27)
[2020-01-21] MEDS ORDERED: 0.9 % Sodium Chloride 250 ML ONE (10:53)
[2020-01-21] MEDS: cefTRIAXone 2,000 MG in Water for inj. (sterile) 20 ML IVP SCH (20:48)
[2020-01-21] MEDS: traZODone 50 MG TABLET PO SCH (20:50)
[2020-01-21 22:19] LABS: Hemoglobin 8.2 g/dL (12.9-16.9)
[2020-01-22] MEDS: MetroNIDAZOLE 500 MG/100 ML 500 MG/100 ML BAG IVPB SCH ×2 (04:55→14:50)
[2020-01-22 05:40] LABS: BUN/Creatinine Ratio 28 (6-26); Blood Urea Nitrogen 30 mg/dL (8-23); Calcium 6.7 mg/dL (8.6-10.3); Carbon Dioxide 12 mEq/L (23-29); Chloride 113 mEq/L (98-107); Glucose 250 mg/dL (70-105); Magnesium 1.5 mg/dL (1.6-2.6); Osmolality,Calculated 311 (280-300); Phosphorous 3.8 mg/dL (2.7-4.5); Potassium 4.6 mEq/L (3.5-5.1); Sodium 143 mEq/L (136-145); eGFR For African Americans > 60 (> 60); eGFR For Non-African Americans > 60 (> 60)
[2020-01-22] MEDS ORDERED: 0.9 % Sodium Chloride 500 ML IVC ONE (08:02)
[2020-01-22] MEDS ORDERED: 0.9 % Sodium Chloride 1,000 ML IVC SCH (08:15)
[2020-01-22] MEDS ORDERED: 0.9 % Sodium Chloride 2,000 ML ONE (08:18)
[2020-01-22] MEDS: Insulin LISPRO 300 UNITS/3 ML VIAL SQ SCH ×3 (08:28→17:23)
[2020-01-22] MEDS: 0.9 % Sodium Chloride 1,000 ML IVC ONE (08:29)
[2020-01-22] MEDS: Famotidine 20 MG TABLET PO SCH (08:30)
[2020-01-22] MEDS: Magnesium Oxide 400 MG TABLET PO SCH (08:30)
[2020-01-22] MEDS: Insulin DETEMIR 100 UNIT/ML X5UNITS SQ SCH (08:30)
[2020-01-22] MEDS: Aspirin Enteric Coated 81 MG Tablet PO SCH (08:30)
[2020-01-22] MEDS: atenoloL 50 MG TABLET PO SCH (08:31)
[2020-01-22] MEDS: Cholecalciferol (D-3) 1,000 UNIT (25MCG) TABLET PO SCH (08:32)
[2020-01-22] MEDS: Ascorbic Acid 500 MG TABLET PO SCH (08:32)
[2020-01-22] MEDS: Pyridoxine (B-6) 50 MG TABLET PO SCH (08:32)
[2020-01-22] MEDS: *HR* HYDROcodone/Acet 5/325 mg TABLET PO PRN (15:41)
[2020-01-22] MEDS: traZODone 50 MG TABLET PO SCH (20:14)
[2020-01-22] MEDS: *HR* LORazepam Oral Conc 2 MG/ML SL PRN (20:21)
[2020-01-23] MEDS: *HR* LORazepam Oral Conc 2 MG/ML SL PRN ×4 (03:07→19:35)
[2020-01-23] MEDS: Haloperidol Oral Conc 10 MG/5 ML UDC PO PRN ×2 (03:07→07:59)
[2020-01-23] MEDS: Famotidine 20 MG TABLET PO SCH (07:59)
[2020-01-23] MEDS: Aspirin Enteric Coated 81 MG Tablet PO SCH (07:59)
[2020-01-23] MEDS: Ascorbic Acid 500 MG TABLET PO SCH (07:59)
[2020-01-23] MEDS: Magnesium Oxide 400 MG TABLET PO SCH (07:59)
[2020-01-23] MEDS: atenoloL 50 MG TABLET PO SCH (08:00)
[2020-01-23] MEDS: Insulin LISPRO 300 UNITS/3 ML VIAL SQ SCH (08:16)
[2020-01-23] MEDS: Insulin DETEMIR 100 UNIT/ML X5UNITS SQ SCH (10:25)
[2020-01-24] MEDS: *HR* LORazepam Oral Conc 2 MG/ML SL PRN ×2 (00:10→04:20)
[2020-01-24 02:49] LABS: Adenovirus Not Detected (Not Detect); Bordetella Pertussis Not Detected (Not Detect); Chlamydophila pneumoniae Not Detected (Not Detect); Coronavirus 229E Not Detected (Not Detect); Coronavirus HKU1 Not Detected (Not Detect); Coronavirus NL63 Not Detected (Not Detect); Coronavirus OC43 Not Detected (Not Detect); Human Metapneumovirus Not Detected (Not Detect); Human Rhinovirus/Enterovirus Not Detected (Not Detect); Influenza A Subtype 2009 H1 Not Detected (Not Detect); Influenza B Not Detected (Not Detect); Mycoplasma pneumoniae Not Detected (Not Detect); Parainfluenza Virus 1 Not Detected (Not Detect); Parainfluenza Virus 2 Not Detected (Not Detect); Parainfluenza Virus 3 Not Detected (Not Detect); Parainfluenza Virus 4 Not Detected (Not Detect); Respiratory Syncytial Virus Not Detected (Not Detect); SARS-CoV-2 Not Detected (Not Detect)
[2020-01-24 07:13] VITALS: BP 50/28
== END 2020-01-24 08:50 | DRG 559 ==
LOC: 2NNU 17:30 → EMEROOARM 17:30 → 2NNU 21:37 → SUATTDRO 22:04 → 2ANU 01-22 18:49
PROVIDERS: ADMIT Family Medicine; ATTEND Internal Medicine